=== PATIENT | male | born 1930 | race Caucasian/White ===

== ENCOUNTER 2016-09-20 08:37 | Emergency (ER) | payer OTHER, MEDICARE ==
[~2016-09-20] VITALS: Ht 172.7 cm; Wt 73.0 kg
[~2016-09-20 08:37] MED LIST: ASPEC81 PO; CYAN10005 PO; DICY10CA12 PO; IBUP-103 PO; SIMV10TA2 PO; ZNTT/150 PO
[2016-09-20 08:41] VITALS: TEMP 36.7; Ht 172.7 cm; Wt 73.0 kg
[2016-09-20] MEDS ORDERED: SODIUM CHLORIDE 0.9% 1000ML 250 ML IV STA (08:53)
[2016-09-20] MEDS ORDERED: SODIUM CHLORIDE 0.9% 1000ML 1,000 ML IV STA (08:53)
--- NOTE | 2016-09-20 09:18 | EMERGENCY ROOM VISIT NOTE ---
History Report prepared by Grant: Vickey Jarvis Under the Supervision of: Dr. Colin Montilla M.D. First contact with patient: 08:46 Chief Complaint: DIZZY Stated Complaint: DIZZINESS History of Present Illness The patient is a 86 year old male who presents to the Emergency Room with complaints of a constant headache beginning 7 days ago. He localizes the pain to the front of his head, and occasionally in the back of his head. He also complains of dizziness and nausea. The patient's dizziness is worsened with movement. He is on Plavix after a TIA. He notes that he had very similar symptoms with his previous TIA. The patient denies any falls or trauma. He denies any fevers, chills, chest pain, SOB, urinary symptoms, black or bloody stool, numbness, and weakness. He notes that he has a pacemaker in place. The patient states that he has not been drinking a lot of water lately. Source of History: patient Onset: 7 days ago Position: head Timing: constant Associated Symptoms: + nausea, No SOB, No chest pain, No chills, No fevers, No hematochezia, No melena, No numbness, No urinary symptoms, No weakness Note: The patient also complains of dizziness. Review of Systems See HPI for pertinent positives & negatives. A total of 10 systems reviewed and were otherwise negative. 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 Nurse's notes were reviewed and I agree with. Family History FHx: cancer FHx: heart disease Social History Smoking Status: Never Smoker Alcohol Use: none Housing Status: lives alone Occupation Status: retired Current/Historical Medications Scheduled Aspirin (Aspirin Ec), 81 MG PO DAILY Clopidogrel (Plavix), 75 MG PO QPM Furosemide (Lasix), 20 MG PO once or twice week Hydralazine Hcl (Apresoline), 10 MG PO BID Isosorbide Mononitrate Ext Rel (Imdur Ext Rel), 60 MG PO QPM Metoprolol Tartrate (Lopressor) (Lopressor), 50 MG PO BID Nutritional Supplements (Boost), 1 CAN PO DAILY Simvastatin (Zocor), 20 MG PO QPM Miscellaneous Medications Acetaminophen (Tylenol), 325 MG PO Allergies Coded Allergies: ROBERTA Inhibitors (Verified Adverse Reaction, Severe, HYPERKALEMIA, 05/25/15) Physical Exam Vital Signs Date Time Temp Pulse Resp B/P Pulse Ox O2 Delivery O2 Flow Rate FiO2 09/20/16 12:50 69 18 142/77 97 09/20/16 10:17 60 16 116/82 98 Room Air 09/20/16 09:17 62 20 127/71 97 Room Air 09/20/16 08:41 36.7 70 16 128/66 98 Room Air Physical Exam General: Well developed, well nourished, non-ill appearing older male in no acute distress, breathing comfortably on room air. Normal speech HEENT: Normal cephalic atraumatic. Pupils are equal round and reactive to light. Extraocular movements are intact. No nystagmus. Oropharynx is pink with moist mucous membranes. No swelling of the mouth lips or tongue. Neck: Supple with a midline trachea. No meningeal signs or stiffness, no JVD or bruits. No Stridor. Chest: Clear to auscultation bilaterally. No wheezes or rhonchi. No increased work of breathing. Heart: Paced rhythm seen on monitor. Abdomen: Soft nontender, nondistended without rebound guarding or rigidity. Extremities: No cyanosis clubbing or edema. No calf tenderness or assymetry Spine/Back. Non tender to palpation. No CVA tenderness Skin: Good turgor without rashes. Neurologic exam: Cranial nerves two through 12 are intact. Motor and sensation are intact and symmetrical throughout. No tremor. No pronator drift. Finger to nose intact. Medical Decision & Procedures ER Provider Diagnostic Interpretation: X-ray results as stated below per interpretation by me and the radiologist. Other radiology results as stated below per my review and radiologist interpretation: HEAD CT NONCONTRAST Findings: The paranasal sinuses and mastoid air cells are clear. The calvarium and skull base are intact. There is no mass, hematoma, midline shift, acute infarct. White matter hypodensity is nonspecific but suggestive of moderate microvascular ischemic change. The ventricles and sulci demonstrate mild age-related involutional changes. Impression: No significant change compared to the prior study. No acute intracranial abnormality. Electronically signed by: Dashawn Manzo M.D. CHEST ONE VIEW PORTABLE FINDINGS: Prior median sternotomy. Bipolar cardiac pacer in good position. Apical fibrotic change bilaterally considered stable. Slight chronic blunting left lateral calcific angle. Lungs otherwise are clear. IMPRESSION: Chronic and postoperative change. No acute process. Electronically signed by: Mir Miller M.D. Laboratory Results 09/20/16 09:05 Red Blood Count 4.59, Mean Corpuscular Volume 92.2, Mean Corpuscular Hemoglobin 29.6, Mean Corpuscular Hemoglobin Concent 32.2, Mean Platelet Volume 9.2, Neutrophils (%) (Auto) 59.9, Lymphocytes (%) (Auto) 20.9, Monocytes (%) (Auto) 10.0, Eosinophils (%) (Auto) 8.3, Basophils (%) (Auto) 0.6, Neutrophils # (Auto ) 4.17, Lymphocytes # (Auto) 1.46, Monocytes # (Auto) 0.70, Eosinophils # (Auto ) 0.58, Basophils # (Auto) 0.04 09/20/16 09:05 Test 09/20/16 09:05 09/20/16 09:11 White Blood Count 6.97 K/uL (4.8-10.8) Red Blood Count 4.59 M/uL (4.7-6.1) Hemoglobin 13.6 g/dL (14.0-18.0) Hematocrit 42.3 % (42-52) Mean Corpuscular Volume 92.2 fL (80-100) Mean Corpuscular Hemoglobin 29.6 pg (25-34) Mean Corpuscular Hemoglobin Concent 32.2 g/dl (32-36) Platelet Count 273 K/uL (130-400) Mean Platelet Volume 9.2 fL (7.4-10.4) Neutrophils (%) (Auto) 59.9 % Lymphocytes (%) (Auto) 20.9 % Monocytes (%) (Auto) 10.0 % Eosinophils (%) (Auto) 8.3 % Basophils (%) (Auto) 0.6 % Neutrophils # (Auto) 4.17 K/uL (1.4-6.5) Lymphocytes # (Auto) 1.46 K/uL (1.2-3.4) Monocytes # (Auto) 0.70 K/uL (0.11-0.59) Eosinophils # (Auto) 0.58 K/uL (0-0.5) Basophils # (Auto) 0.04 K/uL (0-0.2) RDW Standard Deviation 48.8 fL (36.4-46.3) RDW Coefficient of Variation 14.5 % (11.5-14.5) Immature Granulocyte % (Auto) 0.3 % Immature Granulocyte # (Auto) 0.02 K/uL (0.00-0.02) Prothrombin Time 11.0 SECONDS (9.0-12.0) Prothromb Time International Ratio 1.0 (0.9-1.1) Activated Partial Thromboplast Time 24.5 SECONDS (21.0-31.0) Partial Thromboplastin Ratio 0.9 Anion Gap 5.0 mmol/L (3-11) Est Creatinine Clear Calc Drug Dose 38.0 ml/min Estimated GFR () 56.5 Estimated GFR (Non- 48.7 BUN/Creatinine Ratio 16.6 (10-20) Calcium Level 9.3 mg/dl (8.5-10.1) Total Bilirubin 0.7 mg/dl (0.2-1) Direct Bilirubin 0.2 mg/dl (0-0.2) Aspartate Amino Transf (AST/SGOT) 20 U/L (15-37) Alanine Aminotransferase (ALT/SGPT) 21 U/L (12-78) Alkaline Phosphatase 79 U/L (45-117) Total Protein 7.2 gm/dl (6.4-8.2) Albumin 3.8 gm/dl (3.4-5.0) Lipase 284 U/L (73-393) Bedside Troponin I 0.000 ng/ml (0-0.045) FR-Zia-Q-Type Natriuretic Peptide 284 pg/ml (0-1800) Laboratory studies as stated above per my review. Medications Administered Medications (Trade) Dose Ordered Sig/Prachi Route Start Time Stop Time Status Last Admin Dose Admin Sodium Chloride 250 ml @ 999 mls/hr Q16M STAT IV 09/20/16 08:53 09/20/16 09:08 DC 09/20/16 09:25 999 MLS/HR Sodium Chloride (Nss 1000ml) 1,000 ml @ 100 mls/hr Q10H STAT IV 09/20/16 08:53 09/20/16 13:40 DC 09/20/16 08:53 100 MLS/HR Ketorolac Tromethamine (Toradol Inj) 30 mg NOW STAT IV 09/20/16 11:51 09/20/16 11:52 DC 09/20/16 11:58 30 MG ECG Indication: other (dizziness) Rate (beats per minute): 72 Rhythm: other (atrial paced rhythm) Findings: no acute ischemic change, no ectopy Comparison ECG Date: May 14, 2015 Change: no significant change ED Course 0847: Past medical records reviewed. The patient was evaluated in room A11B, and a complete history and physical examination were performed. 0853: Ordered Sodium Chloride 1000 ml @ 100 mls/hr IV, Sodium Chloride 250 ml @ 999 mls/hr IV. 0938: I check in on the patient. She has just returned from CT and looks well. 1151: I reassessed the patient. He would like something more for pain. Ordered Toradol Inj 30 mg IV. 1225: Upon reevaluation, the patient is resting comfortably. I discussed the results and treatment plan with him. He verbalized agreement of the treatment plan. The patient was discharged home. Medical Decision Differentials include, but are not limited to; vertigo, CVA, arrhythmia, anemia , and electrolyte or metabolic abnormality. This patient comes in as described above. He was placed in room A 11. he's had some dizziness has been going on for over a week. It is worse with movement. He has some frontal headache as well. He looks well on exam . he has a normal neurologic exam. He has a pacemaker with a paced rhythm seen on the monitor. IV access was established and blood work was obtained. I also did EKG, chest x- ray, and CAT scan of his head. He was reassessed frequently. He was gently hydrated with IV normal saline bolus. He remained stable. A mild headache and after some of her pain he was given Toradol. He felt better and wants to go home. He was able ambulate without difficulty. CAT scan of his head was unremarkable. He has nothing to suggest acute cardiac event as pacemaker seems to be working. He has no acute electrolyte or metabolic abnormality. He will rest and drink plenty of fluid, use [id number] Tylenol and do not exceed the [id number] dosing regimen for pain and return if: Worsening of symptoms, any new problems or concerns. He was happy with plan and discharged home. Impression Primary Impression: Dizziness Scribe Attestation The scribe's documentation has been prepared under my direction and personally reviewed by me in its entirety. I confirm that the note above accurately reflects all work, treatment, procedures, and medical decision making performed by me. Departure Information Dispostion Home / Self-Care Referrals Aurelio Carter M.D.(NADEEN) (PCP) Forms HOME CARE DOCUMENTATION FORM, IMPORTANT VISIT INFORMATION Patient Instructions My [facility] Additional Instructions Rest. Drink plenty of fluids. Be careful getting up and down. Use ibuprofen 400 mg every 8 hours if needed Return if: Worsening of symptoms, shortness of breath, fever or chills, numbness or weakness, any new problems or concerns. Follow-up with your doctor tomorrow for recheck
[2016-09-20] MEDS ORDERED: ACET-1311 PO (09:24)
[2016-09-20] MEDS ORDERED: FURO-85 PO (09:24)
[2016-09-20] MEDS ORDERED: NUTR-7 PO (09:24)
[2016-09-20 09:38] LABS: BASO % 0.6 %; BASO ABS # 0.04 K/uL (0-0.2); COMPLETE YES; EOS % 8.3 %; HEMATOCRIT 42.3 % (42-52); IG% 0.3 %; LYMPH % 20.9 %; LYMPH ABS # 1.46 K/uL (1.2-3.4); MEAN CELL VOLUME 92.2 fL (80-100); MEAN CORPUSCULAR HEMOGLOBIN 29.6 pg (25-34); MEAN CORPUSCULAR HGB CONC 32.2 g/dl (32-36); MEAN PLATELET VOLUME 9.2 fL (7.4-10.4); NEUT % 59.9 %; PLATELET COUNT 273 K/uL (130-400); RED BLOOD COUNT 4.59 M/uL (4.7-6.1); WHITE BLOOD COUNT 6.97 K/uL (4.8-10.8)
[2016-09-20 09:46] LABS: PARTIAL THROMBOPLASTIN RATIO 0.9
--- NOTE | 2016-09-20 09:52 | DIAGNOSTIC IMAGING REPORT ---
HEAD CT NONCONTRAST CT DOSE: 614.27 mGy.cm HISTORY: dizzy TECHNIQUE: Multiaxial CT images of the head were performed without the use of intravenous contrast. Automated exposure control was utilized for this study. Comparison: Head CT 07/12/2013. Findings: The paranasal sinuses and mastoid air cells are clear. The calvarium and skull base are intact. There is no mass, hematoma, midline shift, acute infarct. White matter hypodensity is nonspecific but suggestive of moderate microvascular ischemic change. The ventricles and sulci demonstrate mild age-related involutional changes. Impression: No significant change compared to the prior study. No acute intracranial abnormality. Electronically signed by: Dashawn Manzo M.D. 09/20/2016 9:50 AM Dictated Date/Time: 09/20/2016 9:46 AM
[2016-09-20 10:06] LABS: BUN/CREATININE RATIO 16.6 (10-20); CALCIUM 9.3 mg/dl (8.5-10.1); CREATININE 1.3 mg/dl (0.60-1.40)
--- NOTE | 2016-09-20 10:15 | DIAGNOSTIC IMAGING REPORT ---
CHEST ONE VIEW PORTABLE CLINICAL HISTORY: CHEST PAIN dyspnea COMPARISON STUDY: 05/14/2015 FINDINGS: Prior median sternotomy. Bipolar cardiac pacer in good position. Apical fibrotic change bilaterally considered stable. Slight chronic blunting left lateral calcific angle. Lungs otherwise are clear. IMPRESSION: Chronic and postoperative change. No acute process. Electronically signed by: Mir Miller M.D. 09/20/2016 10:14 AM Dictated Date/Time: 09/20/2016 10:13 AM
[2016-09-20] MEDS ORDERED: KETOROLAC TROMETHAMINE 30 MG/ML VIAL IV STA (11:51)
[2016-09-20 12:50] VITALS: BP 142/77; PULSE 69; O2SAT 97
[2016-11-21] MEDS ORDERED: ANT25 PO (12:34)
[2016-11-21] MEDS ORDERED: HYDR-5688 PO (12:47)
[2017-03-15] MEDS ORDERED: ASPI81TA28 PO (09:24)
[2017-03-15] MEDS ORDERED: SIMV20TA2 PO (09:24)
[2017-03-15] MEDS ORDERED: HYDR-4715 PO (11:32)
[2017-03-15] MEDS ORDERED: CLOP1TAB15 PO (12:50)
== END 2016-09-20 12:54 | disposition home or self-care (01) ==
LOC: C.EDB 08:39 → C.EDA 12:54
DX: R42 Dizziness and giddiness (principal); R51 Headache; R11.0 Nausea; I25.10 Atherosclerotic heart disease of native coronary artery without angina pectoris; E11.9 Type 2 diabetes mellitus without complications; I10 Essential (primary) hypertension; E78.5 Hyperlipidemia, unspecified; K21.9 Gastro-esophageal reflux disease without esophagitis; Z79.02 Long term (current) use of antithrombotics/antiplatelets; Z79.82 Long term (current) use of aspirin; Z79.899 Other long term (current) drug therapy; I25.2 Old myocardial infarction; Z86.73 Personal history of transient ischemic attack (TIA), and cerebral infarction without residual deficits; Z86.711 Personal history of pulmonary embolism; Z86.718 Personal history of other venous thrombosis and embolism; Z86.79 Personal history of other diseases of the circulatory system; Z95.0 Presence of cardiac pacemaker; Z82.49 Family history of ischemic heart disease and other diseases of the circulatory system

== ENCOUNTER 2016-11-18 19:19 | Inpatient (IN) | payer OTHER, MEDICARE ==
[~2016-11-18] VITALS: Ht 175.3 cm; Wt 76.2 kg
[~2016-11-18 19:19] MED LIST changes: +ACET-1311 PO; -ASPEC81 PO; +ASPI81TA28 PO; +CLOP1TAB15 PO; -CYAN10005 PO; -DICY10CA12 PO; +FURO-85 PO; +HYDR-4715 PO; -IBUP-103 PO; +ISOS60TA25 PO; +METO50TA16 PO; +NUTR-7 PO; -SIMV10TA2 PO; +SIMV20TA2 PO; -ZNTT/150 PO
[2016-11-18] MEDS ORDERED: SODIUM CHLORIDE 0.9% 250ML 250 ML IV STA (20:27)
[2016-11-18] MEDS ORDERED: SODIUM CHLORIDE 0.9% 1000ML 1,000 ML IV SCH (20:27)
[2016-11-18] MEDS ORDERED: MECLIZINE HCL 25 MG TAB PO STA (20:27)
[2016-11-18] MEDS ORDERED: DICY10CA12 PO (20:56)
[2016-11-18] MEDS ORDERED: ZNTT/150 PO (20:56)
[2016-11-18] MEDS ORDERED: B-CO1CAP3 PO (20:56)
--- NOTE | 2016-11-18 21:18 | DIAGNOSTIC IMAGING REPORT ---
SINGLE VIEW CHEST CLINICAL HISTORY: Strokelike symptoms. Vomiting. FINDINGS: 2 AP, portable, upright chest radiographs are compared to study dated 09/20/2016 and correlated with chest CT dated 05/14/2015. The examination is degraded by portable technique and patient rotation. A 2-lead cardiac pacemaker is unchanged in position. The patient is status post midline sternotomy. The heart is enlarged and there is atherosclerotic calcification of the thoracic aorta. The pulmonary vascular is noncongested. Numerous pulmonary nodules and biapical scarring are similar to previous. Chronic interstitial thickening is again noted. No airspace consolidation, large pleural effusion, or pneumothorax is seen. Scarring is again noted at the left lung base. The skeletal structures are osteopenic. The bony thorax is grossly intact. IMPRESSION: 1. Cardiomegaly and cardiac pacemaker. There is no radiographic evidence of congestive failure. 2. Chronic parenchymal changes as above. No superimposed airspace consolidation or pleural effusion is identified. Electronically signed by: Atilio Sánchez M.D. 11/18/2016 9:17 PM Dictated Date/Time: 11/18/2016 9:15 PM
--- NOTE | 2016-11-18 21:46 | DIAGNOSTIC IMAGING REPORT ---
CT SCAN OF THE BRAIN WITHOUT IV CONTRAST CLINICAL HISTORY: Headache. Stroke-like symptoms. COMPARISON STUDY: CT of the brain dated 09/20/2016. TECHNIQUE: Unenhanced axial CT scan of the brain is performed from the vertex to the skull base. CT DOSE: 614.27 mGy.cm FINDINGS: Brain parenchyma: There are age-related involutional changes noting advanced subcortical and periventricular microangiopathic change. There is no hemorrhage, mass effect, or evidence of acute territorial ischemia by CT criteria. 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 Mineralization is noted in the basal ganglia. Jerez-white matter is preserved. No extra-axial fluid collection is seen. Ventricles, sulci, cisterns: Prominent secondary to involutional change. Intracranial vasculature: There is atherosclerotic calcification of the cavernous carotid and vertebral arteries. Calvarium: Unremarkable. Sinuses and mastoids: Trace mucosal thickening is seen in the left maxillary antrum. The remaining paranasal sinuses are clear. The mastoid air cells are well pneumatized. Orbits: The bony orbits are grossly intact. There are bilateral ocular lens implants. IMPRESSION: Senescent changes as above with no hemorrhage, mass effect, or evidence of acute territorial ischemia by CT criteria. Electronically signed by: Atilio Sánchez M.D. 11/18/2016 9:44 PM Dictated Date/Time: 11/18/2016 9:41 PM
[2016-11-18 21:57] LABS: BASO % 0.6 %; BASO ABS # 0.04 K/uL (0-0.2); COMPLETE YES; EOS % 2.8 %; HEMATOCRIT 40.9 % (42-52); IG% 0.1 %; LYMPH % 28.7 %; LYMPH ABS # 2.06 K/uL (1.2-3.4); MEAN CELL VOLUME 90.7 fL (80-100); MEAN CORPUSCULAR HEMOGLOBIN 29.7 pg (25-34); MEAN CORPUSCULAR HGB CONC 32.8 g/dl (32-36); MONO % 7.1 %; NEUT % 60.7 %; PLATELET COUNT 265 K/uL (130-400); RED BLOOD COUNT 4.51 M/uL (4.7-6.1); WHITE BLOOD COUNT 7.19 K/uL (4.8-10.8)
[2016-11-18] MEDS ORDERED: PROMETHAZINE HCL INJ 12.5 MG in SODIUM CHLORIDE 0.9% 50ML 50 ML IV STA (22:07)
[2016-11-18 22:20] LABS: BLOOD UREA NITROGEN 22 mg/dl (7-18); BUN/CREATININE RATIO 15.9 (10-20); CALCIUM 9.3 mg/dl (8.5-10.1); CARBON DIOXIDE 28 mmol/L (21-32); CHLORIDE 109 mmol/L (98-107); GLUCOSE 120 mg/dl (70-99); SODIUM 144 mmol/L (136-145)
[2016-11-18] MEDS ORDERED: MoRPHine SULFATE 4 MG/ML 1 ML CARP\\VIAL IV STA (23:04)
[2016-11-19] VITALS (10 sets, daily range): BP systolic 111–155; BP diastolic 49–88; PULSE 62–102; TEMP 36.5–37; O2SAT 96–99; Ht 175.3 cm; Wt 76.2 kg
[2016-11-19] MEDS ORDERED: POLYETHYLENE (MIRALAX) 17 GM PACK PO PRN (00:30)
[2016-11-19] MEDS ORDERED: MAGNESIUM HYDROXIDE SUSP 30 ML UDC PO PRN (00:30)
[2016-11-19] MEDS ORDERED: ACETAMINOPHEN 325 MG TAB PO PRN (00:30)
[2016-11-19] MEDS ORDERED: ONDANSETRON INJ 2 MG/ML 2 ML VIAL IV PRN (00:30)
[2016-11-19] MEDS ORDERED: ALUMINUM/MAGNESIUM/SIMETH (MAALOX MAX) 30 ML UDC PO PRN (00:30)
[2016-11-19] MEDS ORDERED: MECLIZINE HCL 25 MG TAB PO PRN (00:30)
--- NOTE | 2016-11-19 00:47 | EMERGENCY ROOM VISIT NOTE ---
History Report prepared by Grant: Jessica Dhillon Under the Supervision of: Dr. Juliocesar Humphrey M.D. First contact with patient: 20:07 Chief Complaint: ILLNESS Stated Complaint: SPINNING HEADACHE IN BACK OF NECK,VOMITING History of Present Illness The patient is an 86 year old male who presents to the Emergency Room with complaints of a persistent headache that began around 0500 this morning when he woke. He currently rates his discomfort as a 6/10 in severity. The patient states that when he woke this morning he noticed a headache that he describes as a pounding headache. He notes worsened symptoms with movement. The patient additionally associates dizziness with his symptoms, describing the dizziness as a room spinning sensation. He additionally notes that he vomited twice today. The patient states that he was here one month ago with similar symptoms and was told his symptoms were related to dehydration. He additionally notes that he was diagnosed with a TIA approximately one year ago with similar symptoms today. The patient's daughter notes that the patient is shaky today. The patient denies any chest pain, shortness of breath, fever, difficulty swallowing, visual disturbances, new hearing loss, or new numbness or weakness to one side of the body. The patient notes bilateral numbness to his lower legs due to circulatory problems. The patient states that he took two aspirin and Pepto Bismol for his symptoms today. He additionally notes that he is on Plavix. Source of History: patient, family (daughter) Onset: 0500 this morning Position: head Symptom Intensity: 6/10 Quality: other (pounding) Timing: other (persistent) Associated Symptoms: + vomiting, No fevers, No chest pain, No SOB, No weakness, No numbness Note: Associated Symptoms: dizziness, room spinning sensation Review of Systems See HPI for pertinent positives & negatives. A total of 10 systems reviewed and were otherwise negative. 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 Family History FHx: cancer FHx: heart disease Social History Smoking Status: Never Smoker Alcohol Use: none Housing Status: lives alone Occupation Status: retired Current/Historical Medications Scheduled Aspirin (Aspirin Ec), 81 MG PO DAILY B-Complex Vitamins (B Complex), 1 CAP PO QAM Clopidogrel (Plavix), 75 MG PO QPM Dicyclomine Hcl (Dicyclomine Hcl), 1 CAP PO DAILY Furosemide (Lasix), 20 MG PO once or twice week Hydralazine Hcl (Apresoline), 10 MG PO BID Isosorbide Mononitrate Ext Rel (Imdur Ext Rel), 60 MG PO QPM Metoprolol Tartrate (Lopressor) (Lopressor), 50 MG PO BID Nutritional Supplements (Boost), 1 CAN PO DAILY Ranitidine (Zantac), 150 MG PO BID Simvastatin (Zocor), 20 MG PO QPM Miscellaneous Medications Acetaminophen (Tylenol), 325 MG PO Allergies Coded Allergies: ROBERTA Inhibitors (Verified Adverse Reaction, Severe, HYPERKALEMIA, 11/18/16) Physical Exam Vital Signs Date Time Temp Pulse Resp B/P (MAP) Pulse Ox O2 Delivery O2 Flow Rate FiO2 11/19/16 00:30 61 13 129/57 94 Room Air 11/19/16 00:00 60 16 138/80 96 Room Air 11/18/16 23:30 61 17 123/64 96 Room Air 11/18/16 23:17 127/63 11/18/16 23:00 62 13 127/63 95 Room Air 11/18/16 22:19 64 15 98 11/18/16 22:04 64 16 98 11/18/16 22:01 136/83 11/18/16 21:49 66 18 97 11/18/16 21:19 64 15 96 11/18/16 21:14 80 11/18/16 21:10 98 Room Air 11/18/16 21:09 146/75 11/18/16 19:26 36.6 99 18 148/61 97 Room Air Physical Exam Constitutional: Vital signs reviewed. Eyes: Pupils are equal round reactive to light. Conjunctiva are noninjected. ENT: Pharynx is clear without erythema or exudate. Mucous membranes are moist. Neck supple without meningeal signs. Respiratory: Clear to auscultation bilaterally. Breath sounds are equal bilaterally. Cardiovascular: Regular rate and rhythm. No rubs or gallops. GI: Soft, nondistended and nontender. Bowel sounds are present. Musculoskeletal: No peripheral edema. No lower extremity tenderness. Integumentary: No cyanosis. Neurological: The patient is awake and alert. Cranial nerves II-XII are intact. Motor is 5 out of 5 all extremities. Sensation is intact to light touch all extremities except chronically in the lower extremities below the knees bilaterally. Normal speech. No pronator drift. No limb ataxia. Left lateral nystagmus, no rotatory nystagmus, no dysdiadochokinesis, positive head impulse testing, negative test of skew. Psychiatric: Anxious. Medical Decision & Procedures ER Provider Diagnostic Interpretation: Radiology results as stated below per my review and the radiologist's interpretation: SINGLE VIEW CHEST CLINICAL HISTORY: Strokelike symptoms. Vomiting. FINDINGS: 2 AP, portable, upright chest radiographs are compared to study dated 09/20/2016 and correlated with chest CT dated 05/14/2015. The examination is degraded by portable technique and patient rotation. A 2-lead cardiac pacemaker is unchanged in position. The patient is status post midline sternotomy. The heart is enlarged and there is atherosclerotic calcification of the thoracic aorta. The pulmonary vascular is noncongested. Numerous pulmonary nodules and biapical scarring are similar to previous. Chronic interstitial thickening is again noted. No airspace consolidation, large pleural effusion, or pneumothorax is seen. Scarring is again noted at the left lung base. The skeletal structures are osteopenic. The bony thorax is grossly intact. IMPRESSION: 1. Cardiomegaly and cardiac pacemaker. There is no radiographic evidence of congestive failure. 2. Chronic parenchymal changes as above. No superimposed airspace consolidation or pleural effusion is identified. Electronically signed by: Atilio Sánchez M.D. 11/18/2016 9:17 PM Dictated Date/Time: 11/18/2016 9:[address] SCAN OF THE BRAIN WITHOUT IV CONTRAST CLINICAL HISTORY: Headache. Stroke-like symptoms. COMPARISON STUDY: CT of the brain dated 09/20/2016. TECHNIQUE: Unenhanced axial CT scan of the brain is performed from the vertex to the skull base. CT DOSE: 614.27 mGy.cm FINDINGS: Brain parenchyma: There are age-related involutional changes noting advanced subcortical and periventricular microangiopathic change. There is no hemorrhage, mass effect, or evidence of acute territorial ischemia by CT criteria. 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 Mineralization is noted in the basal ganglia. Jerez-white matter is preserved. No extra-axial fluid collection is seen. Ventricles, sulci, cisterns: Prominent secondary to involutional change. Intracranial vasculature: There is atherosclerotic calcification of the cavernous carotid and vertebral arteries. Calvarium: Unremarkable. Sinuses and mastoids: Trace mucosal thickening is seen in the left maxillary antrum. The remaining paranasal sinuses are clear. The mastoid air cells are well pneumatized. Orbits: The bony orbits are grossly intact. There are bilateral ocular lens implants. IMPRESSION: Senescent changes as above with no hemorrhage, mass effect, or evidence of acute territorial ischemia by CT criteria. Electronically signed by: Atilio Sánchez M.D. 11/18/2016 9:44 PM Dictated Date/Time: 11/18/2016 9:41 PM Laboratory Results 11/18/16 21:45 Red Blood Count 4.51, Mean Corpuscular Volume 90.7, Mean Corpuscular Hemoglobin 29.7, Mean Corpuscular Hemoglobin Concent 32.8, Mean Platelet Volume 9.0, Neutrophils (%) (Auto) 60.7, Lymphocytes (%) (Auto) 28.7, Monocytes (%) (Auto) 7.1, Eosinophils (%) (Auto) 2.8, Basophils (%) (Auto) 0.6, Neutrophils # (Auto) 4.37, Lymphocytes # (Auto) 2.06, Monocytes # (Auto) 0.51, Eosinophils # (Auto) 0.20, Basophils # (Auto) 0.04 11/18/16 21:45 Test 11/18/16 21:45 White Blood Count 7.19 K/uL (4.8-10.8) Red Blood Count 4.51 M/uL (4.7-6.1) Hemoglobin 13.4 g/dL (14.0-18.0) Hematocrit 40.9 % (42-52) Mean Corpuscular Volume 90.7 fL (80-100) Mean Corpuscular Hemoglobin 29.7 pg (25-34) Mean Corpuscular Hemoglobin Concent 32.8 g/dl (32-36) Platelet Count 265 K/uL (130-400) Mean Platelet Volume 9.0 fL (7.4-10.4) Neutrophils (%) (Auto) 60.7 % Lymphocytes (%) (Auto) 28.7 % Monocytes (%) (Auto) 7.1 % Eosinophils (%) (Auto) 2.8 % Basophils (%) (Auto) 0.6 % Neutrophils # (Auto) 4.37 K/uL (1.4-6.5) Lymphocytes # (Auto) 2.06 K/uL (1.2-3.4) Monocytes # (Auto) 0.51 K/uL (0.11-0.59) Eosinophils # (Auto) 0.20 K/uL (0-0.5) Basophils # (Auto) 0.04 K/uL (0-0.2) RDW Standard Deviation 47.9 fL (36.4-46.3) RDW Coefficient of Variation 14.3 % (11.5-14.5) Immature Granulocyte % (Auto) 0.1 % Immature Granulocyte # (Auto) 0.01 K/uL (0.00-0.02) Prothrombin Time 11.0 SECONDS (9.0-12.0) Prothromb Time International Ratio 1.0 (0.9-1.1) Activated Partial Thromboplast Time 25.3 SECONDS (21.0-31.0) Partial Thromboplastin Ratio 1.0 Anion Gap 7.0 mmol/L (3-11) Est Creatinine Clear Calc Drug Dose 35.3 ml/min Estimated GFR () 51.6 Estimated GFR (Non- 44.5 BUN/Creatinine Ratio 15.9 (10-20) Calcium Level 9.3 mg/dl (8.5-10.1) Troponin I < 0.015 ng/ml (0-0.045) Laboratory results as reviewed by me. Medications Administered Medications (Trade) Dose Ordered Sig/Prachi Route Start Time Stop Time Status Last Admin Dose Admin Sodium Chloride 1,000 ml @ 50 mls/hr Q20H IV 11/18/16 20:27 12/18/16 20:26 11/18/16 22:02 50 MLS/HR Sodium Chloride 250 ml @ 999 mls/hr Q16M STAT IV 11/18/16 20:27 7/7/17 20:42 DC 11/18/16 21:47 999 MLS/HR Meclizine HCl (Antivert Tab) 25 mg NOW STAT PO 11/18/16 20:27 11/18/16 20:29 DC 11/18/16 21:53 25 MG Promethazine HCl 12.5 mg/Sodium Chloride 50.5 ml @ 204 mls/hr NOW STAT IV 11/18/16 22:07 11/18/16 22:21 DC 11/18/16 22:22 204 MLS/HR Morphine Sulfate (MoRPHine SULFATE INJ) 4 mg NOW STAT IV 11/18/16 23:04 11/18/16 23:05 DC 11/18/16 23:19 4 MG ECG Indication: other (dizziness) Rate (beats per minute): 67 Rhythm: other (atrial paced) Findings: Q waves (Inferior), no ectopy ED Course 2009: The patient was evaluated in room C9. A complete history and physical exam was performed. 2026: Ordered Antivert Tab 25 mg PO, Sodium Chloride 250 ml @ 999 mls/hr IV, Sodium Chloride 1000 ml @ 50 mls/hr IV. 2143: I reevaluated the patient and he has some slight asymmetry to the left side. The right side rises higher than the left. 2206: Ordered Promethazine HCl 12.4 mg/Sodium Chloride 50.5 ml @ 204 mls/hr IV. 2: I reevaluated the patient and he is not feeling any better. Phenergan is currently infusing and he appears to have asymmetry to the face. The asymmetry appears to be effort related as he can sometimes smile fully on the left side. 2256: I reevaluated the patient and he is not feeling any better. I discussed all the exam findings with him and I discussed the treatment plan. He verbalized complete understanding and agreement. The patient is going to be evaluated for further treatment. 2304: Ordered Morphine Sulfate 4 mg IV. 2305: I discussed the patients case with Keira Gustafson. He is going to evaluate the patient for further treatment. Medical Decision This is an 86-year-old male who presents with dizziness and headache. Differential diagnosis includes intracranial hemorrhage, intracranial mass, cerebellar infarct, benign positional vertigo, vertebrobasilar insufficiency. I did perform a limited focused review of portions of the patient's old chart on the electronic medical record. The patient was here in September for dizziness and headache. He had a negative CT of the head. He felt better with normal saline and was discharged home. He was admitted in 2013 for vertigo and headache. Questionable posterior CVA. Medication Reconciliation: I attest that I have personally reviewed the patient' s current medication list. Blood Pressure Screening: Patient was found to have an elevated blood pressure and was referred to their primary doctor for recheck and further treatment. I did evaluate the patient as noted above. I did evaluate the patient as noted above. He has had previous episodes of acute vertigo. It is worse with movement of his head. He has no cerebellar signs on my examination. His exam is more consistent with a peripheral vertigo. IV access was established. The patient was placed on a continuous potline monitor. I did treat him with normal saline IV. He was also given Antivert. He had no relief and was given Phenergan IV. I did order and personally review the patient's 12-lead EKG and chest x-ray as described above. I did order and review the patient's blood work as noted in the electronic medical record. I did order a CT of the head. I did review the images myself as well as the radiology report as described above. There is no evidence of infarct. I did reassess the patient. He has persistent symptoms. I did treat the patient with morphine. I did recommend hospitalization for further evaluation of his symptoms. Unfortunately because of his pacemaker he cannot have an MRI. He may require a CT angiogram. I did discuss the case with the hospitalist and case operator. Consults Time Called: 2300 Consulting Physician: Keira Gustafson Returned Call: [phone] I discussed the patients case with Keira Gustafson. He is going to evaluate the patient for further treatment. Impression Primary Impression: Ataxia Additional Impressions: Vertigo Headache Scribe Attestation The scribe's documentation has been prepared under my direct and personally reviewed by me in its entirety. I confirm that the note above accurately reflects all work, treatment, procedures, and medical decision making performed by me. Departure Information Dispostion Being Evaluated By Hospitalist Referrals Aurelio Carter M.D. ([facility]) (PCP) Problem Qualifiers Additional Impressions: Headache Headache type: unspecified Headache chronicity pattern: acute headache
[2016-11-19] MEDS ORDERED: OPTIRAY 320 IV PRN ×2 (01:00→15:00)
--- NOTE | 2016-11-19 01:19 | History and Physical ---
History & Physical Date & Time of Service: Nov 19, 2016 at 00:53 Chief Complaint: Spinning Headache In Back Of Neck,Vomiting Primary Care Physician: Aurelio Carter M.D.([facility]) History of Present Illness Source: patient, family, clinic records, hospital records This is an 86 year old male with a PMH of CAD s/p CABG x3, sinus node dysfunction s/p permanent pacemaker, ischemic cardiomyopathy with EF ~ 40%, HTN presents with dizziness, nausea, headache from the neck radiating to the front of the head. Patient states that he has had issues with dizziness in the past. Also states in 2013, he had been told about a possible TIA. States that the dizziness began at about 4AM on November 18 -- and has persisted since then. Denies chest pain/palpitations/shortness of breath. Was in his usual state of health prior to this beginning. Denies fevers/chills. Past Medical/Surgical History Medical Problems: (1) ACUTE PERICARDITIS NOS Status: Chronic (2) ACUTE RENAL FAILURE, UNSPECIFIED Status: Chronic (3) AORTOCORONARY BYPASS Status: Chronic (4) ATRIAL FIBRILLATION Status: Chronic (5) CARDIAC PACEMAKER IN SITU Status: Chronic (6) CORON ATHEROSCLER NOS TYPE VESSEL, [place] OR GRAFT Status: Chronic (7) DIAB PRANAY WO COMPL, TYPE II OR UNSPEC TYPE, NOT UNCNTRLD Status: Chronic (8) DIVERTICULOSIS COLON (W/O MENT OF HEMORRHAGE) Status: Chronic (9) ESOPHAGEAL REFLUX Status: Chronic (10) HX-VENOUS THROMBOSIS&EMBOLISM Status: Chronic (11) HYPERLIPIDEMIA NEC/NOS Status: Chronic (12) HYPERTENSION NOS Status: Chronic (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 (14) 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 Family History FHx: cancer FHx: heart disease Social History Smoking Status: Never Smoker Housing status: lives alone Occupational Status: retired Immunizations History of Influenza Vaccine: Yes Influenza Vaccine Date: Feb 22, 2013 History of Tetanus Vaccine?: UTD Tetanus Immunization Date: Jul 23, 2005 History of Pneumococcal: Yes Pneumococcal Date: Jul 23, 2005 History of Hepatitis B Vaccine: No Multi-Drug Resistant Organisms History of MDRO: No Allergies Coded Allergies: ROBERTA Inhibitors (Verified Adverse Reaction, Severe, HYPERKALEMIA, 11/18/16) Home Medications Scheduled Aspirin (Aspirin Ec), 81 MG PO DAILY B-Complex Vitamins (B Complex), 1 CAP PO QAM Clopidogrel (Plavix), 75 MG PO QPM Dicyclomine Hcl (Dicyclomine Hcl), 1 CAP PO DAILY Furosemide (Lasix), 20 MG PO once or twice week Hydralazine Hcl (Apresoline), 10 MG PO BID Isosorbide Mononitrate Ext Rel (Imdur Ext Rel), 60 MG PO QPM Metoprolol Tartrate (Lopressor) (Lopressor), 50 MG PO BID Nutritional Supplements (Boost), 1 CAN PO DAILY Ranitidine (Zantac), 150 MG PO BID Simvastatin (Zocor), 20 MG PO QPM Miscellaneous Medications Acetaminophen (Tylenol), 325 MG PO Review of Systems Constitutional: No fever, No chills, No weakness Eyes: + problem reported (+headache), No worsening of vision Respiratory: No cough, No sputum, No wheezing, No shortness of breath, No dyspnea on exertion, No dyspnea at rest, No hemoptysis Cardiovascular: No chest pain, No edema, No palpitations Abdomen: + nausea, + vomiting, No pain, No diarrhea, No constipation, No GI bleeding Musculoskeletal: No joint pain, No muscle pain Genitourinary - Male: No hematuria, No dysuria, No urinary frequency, No urinary urgency Neurologic: + vertigo, + balance problems, No memory loss, No paralysis, No weakness, No numbness/tingling Psychiatric: No depression symptoms Endocrine: No fatigue Hematologic / Lymphatic: No abnormal bleeding/bruising Integumentary: No rash Allergic / Immunologic: No environmental allergies, No seasonal allergies Physical Exam Vital Signs Date Time Temp Pulse Resp B/P (MAP) Pulse Ox O2 Delivery O2 Flow Rate FiO2 11/19/16 00:30 61 13 129/57 94 Room Air 11/19/16 00:00 60 16 138/80 96 Room Air 11/18/16 23:30 61 17 123/64 96 Room Air 11/18/16 23:17 127/63 11/18/16 23:00 62 13 127/63 95 Room Air 11/18/16 22:19 64 15 98 11/18/16 22:04 64 16 98 11/18/16 22:01 136/83 11/18/16 21:49 66 18 97 11/18/16 21:19 64 15 96 11/18/16 21:14 80 11/18/16 21:10 98 Room Air 11/18/16 21:09 146/75 11/18/16 19:26 36.6 99 18 148/61 97 Room Air General Appearance: + moderate distress (secondary to pain/headache/dizziness) , + pertinent finding (elderly) Head: normocephalic, atraumatic Eyes: normal inspection ENT: hearing grossly normal Respiratory/Chest: chest non-tender, lungs clear, normal breath sounds, no respiratory distress, no accessory muscle use Cardiovascular: regular rate, rhythm, no edema Abdomen/GI: normal bowel sounds, non tender, soft Extremities/Musculoskelatal: normal capillary refill, no pedal edema Neurologic/Psych: medical customer service representative II-XII nml as tested, no motor/sensory deficits, alert, normal mood/affect, oriented x 3 Diagnostics Laboratory Results Results Past 24 Hours Test 11/18/16 21:45 Range/Units White Blood Count 7.19 4.8-10.8 K/uL Red Blood Count 4.51 4.7-6.1 M/uL Hemoglobin 13.4 14.0-18.0 g/dL Hematocrit 40.9 42-52 % Mean Corpuscular Volume 90.7 80-100 fL Mean Corpuscular Hemoglobin 29.7 25-34 pg Mean Corpuscular Hemoglobin Concent 32.8 32-36 g/dl Platelet Count 265 130-400 K/uL Mean Platelet Volume 9.0 7.4-10.4 fL Neutrophils (%) (Auto) 60.7 % Lymphocytes (%) (Auto) 28.7 % Monocytes (%) (Auto) 7.1 % Eosinophils (%) (Auto) 2.8 % Basophils (%) (Auto) 0.6 % Neutrophils # (Auto) 4.37 1.4-6.5 K/uL Lymphocytes # (Auto) 2.06 1.2-3.4 K/uL Monocytes # (Auto) 0.51 0.11-0.59 K/uL Eosinophils # (Auto) 0.20 0-0.5 K/uL Basophils # (Auto) 0.04 0-0.2 K/uL RDW Standard Deviation 47.9 36.4-46.3 fL RDW Coefficient of Variation 14.3 11.5-14.5 % Immature Granulocyte % (Auto) 0.1 % Immature Granulocyte # (Auto) 0.01 0.00-0.02 K/uL Prothrombin Time 11.0 9.0-12.0 SECONDS Prothromb Time International Ratio 1.0 0.9-1.1 Activated Partial Thromboplast Time 25.3 21.0-31.0 SECONDS Partial Thromboplastin Ratio 1.0 Sodium Level 144 136-145 mmol/L Potassium Level 4.0 3.5-5.1 mmol/L Chloride Level 109 98-107 mmol/L Carbon Dioxide Level 28 21-32 mmol/L Anion Gap 7.0 3-11 mmol/L Blood Urea Nitrogen 22 7-18 mg/dl Creatinine 1.40 0.60-1.40 mg/dl Est Creatinine Clear Calc Drug Dose 35.3 ml/min Estimated GFR () 51.6 Estimated GFR (Non- 44.5 BUN/Creatinine Ratio 15.9 10-20 Random Glucose 120 70-99 mg/dl Calcium Level 9.3 8.5-10.1 mg/dl Troponin I < 0.015 0-0.045 ng/ml Diagnostic Radiology CT SCAN OF THE BRAIN WITHOUT IV CONTRAST CLINICAL HISTORY: Headache. Stroke-like symptoms. COMPARISON STUDY: CT of the brain dated 09/20/2016. TECHNIQUE: Unenhanced axial CT scan of the brain is performed from the vertex to the skull base. CT DOSE: 614.27 mGy.cm FINDINGS: Brain parenchyma: There are age-related involutional changes noting advanced subcortical and periventricular microangiopathic change. There is no hemorrhage, mass effect, or evidence of acute territorial ischemia by CT criteria. 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 Mineralization is noted in the basal ganglia. Jerez-white matter is preserved. No extra-axial fluid collection is seen. Ventricles, sulci, cisterns: Prominent secondary to involutional change. Intracranial vasculature: There is atherosclerotic calcification of the cavernous carotid and vertebral arteries. Calvarium: Unremarkable. Sinuses and mastoids: Trace mucosal thickening is seen in the left maxillary antrum. The remaining paranasal sinuses are clear. The mastoid air cells are well pneumatized. Orbits: The bony orbits are grossly intact. There are bilateral ocular lens implants. IMPRESSION: Senescent changes as above with no hemorrhage, mass effect, or evidence of acute territorial ischemia by CT criteria. SINGLE VIEW CHEST CLINICAL HISTORY: Strokelike symptoms. Vomiting. FINDINGS: 2 AP, portable, upright chest radiographs are compared to study dated 09/20/2016 and correlated with chest CT dated 05/14/2015. The examination is degraded by portable technique and patient rotation. A 2-lead cardiac pacemaker is unchanged in position. The patient is status post midline sternotomy. The heart is enlarged and there is atherosclerotic calcification of the thoracic aorta. The pulmonary vascular is noncongested. Numerous pulmonary nodules and biapical scarring are similar to previous. Chronic interstitial thickening is again noted. No airspace consolidation, large pleural effusion, or pneumothorax is seen. Scarring is again noted at the left lung base. The skeletal structures are osteopenic. The bony thorax is grossly intact. IMPRESSION: 1. Cardiomegaly and cardiac pacemaker. There is no radiographic evidence of congestive failure. 2. Chronic parenchymal changes as above. No superimposed airspace consolidation or pleural effusion is identified. EKG Atrial-paced rhythm with prolonged AV conduction Inferior infarct (cited on or before 28-MAR-2010) Cannot rule out Anterior infarct , age undetermined Abnormal ECG When compared with ECG of 20-SEP-2016 09:04, No significant change was found No change from prior EKG Impression Assessment and Plan This is an 86 year old male with a PMH of CAD s/p CABG x3, sinus node dysfunction s/p permanent pacemaker, ischemic cardiomyopathy with EF ~ 40%, HTN presents with vertigo Vertigo dizziness, vertigo, nausea/vomiting/ambulatory issues Head CT negative given meclizine, Phenergan - did not improve symptoms worsening headache as well hx. of possible TIA in 2013 will check CTA of head/neck to r/o CVA/circulation issues morphine, toradol PRN meclizine 25mg TID PRN PT/OT evaluation CAD s/p CABG no chest pain, stable continue aspirin, b-сергей, statin, Imdur, Plavix Sinus Node Dysfunction s/p PPM HTN continue Hydralazine DVT ppx subq heparin FULL CODE VTE Prophylaxis VTE Risk Assessment Done? Y/N: Yes Risk Level: Moderate
[2016-11-19] MEDS ORDERED: SODIUM CHLORIDE 0.9% 1000ML 1,000 ML IV SCH ×2 (03:00→18:45)
[2016-11-19] MEDS: HEPARIN SOD 5000 UNIT/0.5 ML CARP SQ SCH ×3 (05:37→21:14)
[2016-11-19 06:10] LABS: MEAN CELL VOLUME 90.5 fL (80-100); MEAN CORPUSCULAR HEMOGLOBIN 30.3 pg (25-34); MEAN CORPUSCULAR HGB CONC 33.5 g/dl (32-36); MEAN PLATELET VOLUME 8.7 fL (7.4-10.4); PLATELET COUNT 241 K/uL (130-400); RED BLOOD COUNT 4.09 M/uL (4.7-6.1); WHITE BLOOD COUNT 6.48 K/uL (4.8-10.8)
[2016-11-19 06:42] LABS: BUN/CREATININE RATIO 15.5 (10-20); CALCIUM 8.6 mg/dl (8.5-10.1); CREATININE 1.2 mg/dl (0.60-1.40)
--- NOTE | 2016-11-19 07:23 | DIAGNOSTIC IMAGING REPORT ---
CT NECK ANGIO WITH CONTRAST CLINICAL HISTORY: Headache, dizziness, neck pain. COMPARISON STUDY: No previous studies for comparison. TECHNIQUE: CT angiography was performed from the aortic arch to the skull base. MIP imaging was performed. The patient was scanned in a dynamic helical fashion during intravenous administration of 120 cc of Optiray 320. CT DOSE: 1425.13 mGy.cm Technique: CT angiogram of the carotid and vertebral arteries was obtained using intravenous contrast and 3-D reconstruction. NASCET criteria was utilized. Findings: Visualized portions of the lung apices reveal multiple upper lung zone pulmonary nodules, likely infectious/inflammatory. There are atheromatous changes present at the right carotid bifurcation. There is a high-grade stenosis of the right external carotid artery. There is no evidence of 11 significant internal carotid artery stenosis. Moderate atheromatous changes are present at the bifurcation. There is no evidence of hemodynamic significant internal or external carotid artery stenosis. The right vertebral artery is dominant. The left vertebral artery occludes distally. More proximally, there are multifocal stenoses. IMPRESSION: 1. Dominant right vertebral 2. Multifocal left vertebral stenoses which occludes the C1 level 3. No evidence of internal carotid artery stenosis 4. 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 Extensive bilateral fibronodular apical pulmonary opacities. Electronically signed by: Uzair Castillo M.D. 11/19/2016 7:22 AM Dictated Date/Time: 11/19/2016 7:15 AM
--- NOTE | 2016-11-19 07:29 | DIAGNOSTIC IMAGING REPORT ---
CT ANGIOGRAPHY HEAD COMBO CT DOSE: CLINICAL HISTORY: Headache and dizziness TECHNIQUE: Unenhanced images were obtained the brain. The patient was then imaged in a dynamic helical fashion during intravenous administration of 120 cc of Optiray 320. MIP imaging was performed. COMPARISON STUDY: Noncontrast head CT dated 11/18/2016 FINDINGS: No intra or extra-axial mass lesions are visualized. There is extensive white matter hypodensities, likely a small vessel basis. There is no acute hemorrhage. There is no midline shift. There is no hydrocephalus. The distal left vertebral is occluded. The left vertebral fills in a retrograde fashion. There is no evidence of intracranial stenosis. The dural venous sinuses appear patent. 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 IMPRESSION: 1. 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 11/19/2016 7:27 AM Dictated Date/Time: 11/19/2016 7:23 AM
[2016-11-19] MEDS: ASPIRIN 81 MG ECTAB PO SCH (07:42)
[2016-11-19] MEDS: DICYCLOMINE HCL 10 MG CAP PO SCH (07:42)
[2016-11-19] MEDS: HydrALAZINE 10 MG TAB PO SCH ×2 (07:42→21:12)
[2016-11-19] MEDS: RANITIDINE HCL 150 MG TAB PO SCH ×2 (07:43→21:11)
[2016-11-19] MEDS: METOPROLOL TARTRATE 50 MG TAB PO SCH ×2 (07:43→21:11)
[2016-11-19] MEDS: MoRPHine SULFATE 2 MG/ML CARP IV PRN (07:47)
[2016-11-19 07:58] LABS: URINE APPEARANCE CLEAR (CLEAR); URINE BILIRUBIN NEG (NEG); URINE COLOR YELLOW; URINE NITRITE NEG (NEG); URINE SPECIFIC GRAVITY > 1.045 (1.000-1.030); UROBILINOGEN NEG (NEG); ZZUR CULT IF INDIC CLEAN CATCH NO
[2016-11-19] MEDS ORDERED: PNEUMOCOCCAL ADMINISTRATION CHARGE ONE (08:00)
[2016-11-19] MEDS ORDERED: PNEUMOCOCCAL POLYSACCHARIDES 25 MCG/0.5 ML VIAL/SYR IM. ONE (08:00)
[2016-11-19 08:13] LABS: MANUAL MICROSCOPIC REQUIRED? NO; REVIEW REQ? NO
--- NOTE | 2016-11-19 12:13 | Neurology Consultation ---
Neurology Consultation Date of Consultation: Nov 19, 2016. Attending Physician: Debbie Ayala D.O. Primary Care Physician: Aurelio Carter M.D.(NADEEN) Reason for Consultation: headache with vertigo History of Present Illness Source: patient, family, hospital records This is an 86 year old man a pateint of Dr Carter with the past history as listed below and medications as listed below who presented to the er on the with a history of occipital cervical midline headache and dizziness which by history is a mix of dysequilibrium and probable elements of vertigo with some hearing loss worse on the left but with no symptoms referable to other cranial nerves and with a long history of gait dysfunction and distal leg weakness and numbness that required a can for stability. 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 (6) CORON ATHEROSCLER NOS TYPE VESSEL, LEVELOCK OR GRAFT Status: Chronic (7) DIAB PRANAY WO COMPL, TYPE II OR UNSPEC TYPE, NOT UNCNTRLD Status: Chronic (8) DIVERTICULOSIS COLON (W/O MENT OF HEMORRHAGE) Status: Chronic (9) ESOPHAGEAL REFLUX Status: Chronic (10) HX-VENOUS THROMBOSIS&EMBOLISM Status: Chronic (11) HYPERLIPIDEMIA NEC/NOS Status: Chronic (12) HYPERTENSION NOS Status: Chronic (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 (14) 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 Status: Acute Immunizations History of Influenza Vaccine: Yes Influenza Vaccine Date: Feb 22, 2013 History of Tetanus Vaccine?: UTD Tetanus Immunization Date: Jul 23, 2005 History of Pneumococcal: Yes Pneumococcal Date: Jul 23, 2005 History of Hepatitis B Vaccine: No Multi-Drug Resistant Organisms History of MDRO: No Allergies Coded Allergies: ROBERTA Inhibitors (Verified Adverse Reaction, Severe, HYPERKALEMIA, 11/18/16) Home Medications Scheduled Aspirin (Aspirin Ec), 81 MG PO DAILY B-Complex Vitamins (B Complex), 1 CAP PO QAM Clopidogrel (Plavix), 75 MG PO QPM Dicyclomine Hcl (Dicyclomine Hcl), 1 CAP PO DAILY Furosemide (Lasix), 20 MG PO once or twice week Hydralazine Hcl (Apresoline), 10 MG PO BID Isosorbide Mononitrate Ext Rel (Imdur Ext Rel), 60 MG PO QPM Metoprolol Tartrate (Lopressor) (Lopressor), 50 MG PO BID Nutritional Supplements (Boost), 1 CAN PO DAILY Ranitidine (Zantac), 150 MG PO BID Simvastatin (Zocor), 20 MG PO QPM Miscellaneous Medications Acetaminophen (Tylenol), 325 MG PO Review of Systems Constitutional: No fever, No chills, No weakness Eyes: + problem reported (+headache), No worsening of vision Respiratory: No cough, No sputum, No wheezing, No shortness of breath, No dyspnea on exertion, No dyspnea at rest, No hemoptysis Cardiovascular: No chest pain, No edema, No palpitations Abdomen: + nausea, + vomiting, No pain, No diarrhea, No constipation, No GI bleeding Musculoskeletal: No joint pain, No muscle painm bilateral distal leg weakness and numbness with some edema Genitourinary - Male: No hematuria, No dysuria, No urinary frequency, No urinary urgency Neurologic: + vertigo, + balance problems, No memory loss, No paralysis, No weakness, No numbness/tingling Psychiatric: No depression symptoms Endocrine: No fatigue Hematologic / Lymphatic: No abnormal bleeding/bruising Integumentary: No rash Allergic / Immunologic: No environmental allergies, No seasonal allergies Family History Non contributory in light of patients age Social History Smoking Status: Former smoker Housing Status: lives alone Occupation Status: retired Allergies Coded Allergies: ROBERTA Inhibitors (Verified Adverse Reaction, Severe, HYPERKALEMIA, 11/18/16) Current Inpatient Medications Current Inpatient Medications Medications (Trade) Dose Ordered Sig/Prachi Route Start Time Stop Time Status Last Admin Dose Admin Heparin Sodium (Porcine) (Heparin Sq 5000 Unit/0.5ml) 5,000 unit Q8 SQ 11/19/16 06:00 12/19/16 05:59 11/19/16 05:37 5,000 UNIT Sodium Chloride 1,000 ml @ 80 mls/hr [id number] IV 11/19/16 03:00 12/19/16 02:59 11/19/16 03:19 80 MLS/HR Acetaminophen (Tylenol Tab) 650 mg Q4H PRN PO 11/19/16 00:30 12/19/16 00:29 Al Hydrox/Mg Hydrox/Simethicone (Maalox Max Susp) 15 ml Q4H PRN PO 11/19/16 00:30 12/19/16 00:29 Magnesium Hydroxide (Milk Of Magnesia Susp) 30 ml Q12H PRN PO 11/19/16 00:30 12/19/16 00:29 Ondansetron HCl (Zofran Inj) 4 mg Q6H PRN IV 11/19/16 00:30 12/19/16 00:29 Aspirin (Ecotrin Tab) 81 mg QAM PO 11/19/16 09:00 12/19/16 08:59 11/19/16 07:42 81 MG Polyethylene (Miralax Powder Packet) 17 gm DAILY PRN PO 11/19/16 00:30 12/19/16 00:29 Clopidogrel Bisulfate (plAVix TAB) 75 mg QPM PO 11/19/16 21:00 12/19/16 20:59 Dicyclomine HCl (Bentyl Cap) 10 mg DAILY PO 11/19/16 09:00 12/19/16 08:59 11/19/16 07:42 10 MG Hydralazine HCl (Apresoline Tab) 10 mg BID PO 11/19/16 09:00 12/19/16 08:59 11/19/16 07:42 10 MG Isosorbide Mononitrate (Imdur Ext Rel Tab) 60 mg QPM PO 11/19/16 21:00 12/19/16 20:59 Metoprolol Tartrate (Lopressor Tab) 50 mg BID PO 11/19/16 09:00 12/19/16 08:59 11/19/16 07:43 50 MG Ranitidine HCl (zANTac TAB) 150 mg BID PO 11/19/16 09:00 12/19/16 08:59 11/19/16 07:43 150 MG Simvastatin (Zocor Tab) 20 mg QPM PO 11/19/16 21:00 12/19/16 20:59 Morphine Sulfate (MoRPHine SULFATE INJ) 2 mg Q4 PRN IV 11/19/16 00:30 12/03/16 00:29 11/19/16 07:47 2 MG Meclizine HCl (Antivert Tab) 25 mg TID PRN PO 11/19/16 00:30 12/19/16 00:29 Ioversol (Optiray 320) 100 ml UD PRN IV 11/19/16 01:00 11/23/16 00:59 Physical Exam Vital Signs (Past 24 Hrs): Date Time Temp Pulse Resp B/P (MAP) Pulse Ox O2 Delivery O2 Flow Rate FiO2 11/19/16 12:00 Room Air 11/19/16 11:33 36.5 69 18 112/62 (79) 99 Room Air 11/19/16 08:17 37.0 62 18 139/60 (86) 99 11/19/16 08:00 Room Air 11/19/16 04:38 98 Room Air 11/19/16 03:10 36.9 102 20 155/78 (103) 98 Room Air 11/19/16 01:57 36.5 88 18 152/77 96 Room Air 11/19/16 01:01 127/60 11/19/16 01:00 61 10 127/60 94 Room Air 11/19/16 00:30 61 13 129/57 94 Room Air 11/19/16 00:00 60 16 138/80 96 Room Air 11/18/16 23:30 61 17 123/64 96 Room Air 11/18/16 23:17 127/63 11/18/16 23:00 62 13 127/63 95 Room Air 11/18/16 22:19 64 15 98 11/18/16 22:04 64 16 98 11/18/16 22:01 136/83 11/18/16 21:49 66 18 97 11/18/16 21:19 64 15 96 11/18/16 21:14 80 11/18/16 21:10 98 Room Air 11/18/16 21:09 146/75 11/18/16 19:26 36.6 99 18 148/61 97 Room Air Physical Exam: Constitutional: There were no vitals taken for this visit., Appearance nourished , elderly and appropriate for stated age somewhat thin and hearing impaired reliability as a historian fair Ears, Nose, Mouth and Throat: mucous membranes moist, no injection and skin normal, eyes normal mild hearing impairment worse on the left no nystagmus or eom limitatioon and gross visual acuity is about 20/40 Neck: supple but has pain in suboccipital and high cervical region with rotation of head and flexion and extension Cardiovascular: normal S-1 and S-2 and regular rate and rhythm Respiratory: clear to auscultation (CTA) and no rales, ronchi or wheeze Musculoskeletal: no peripheral edema and good distal pulses Has atrophy of anterior compartment more than posterior compartment distal leg muscles Skin: normal and intact minor senile thinning Eyes: extraocular muscles intact (EOMI) and pupils equal, round and reactive to light (PERRL) as above normal eom and no nystagmus NEUROLOGIC EXAMINATION: Mental status: Alert and interactive Oriented to full date and location Oriented to person Speech fluent with no evidence of aphasia Cranial Nerves Normal findings for Cranial Nerves II - XII Reflexes: Deep tendon reflexes were symmetrical and graded 1/5 in arms but 0/5 at knees and ankles toes bilaterally down Sensory: loss of vibratory sense below knees proprioception slight off in toes and temperature and pin only slightly down over feet Coordination: Normal on [id number], [id number] Gait not tested but no truncal ataxia while seated on bed and Hallpike maneuvers actually negative save for some minor dysequilibrium and major complaints of neck pain and "grinding " Motor: Negative for pronator drift of out stretched arms with eyes closed. Strength: Normal - 5/5 in upper extremities and at most 1/5 in anterior compartments wnd 3 /5 in paoterior compartments and normal in quads and leg flexors Laboratory Results Past 24 Hours: 11/19/16 05:39 11/19/16 05:39 Test 11/18/16 21:45 11/19/16 05:39 11/19/16 07:55 Immature Granulocyte % (Auto) 0.1 % White Blood Count 7.19 K/uL (4.8-10.8) Red Blood Count 4.51 M/uL (4.7-6.1) 4.09 M/uL (4.7-6.1) Hemoglobin 13.4 g/dL (14.0-18.0) Hematocrit 40.9 % (42-52) Mean Corpuscular Volume 90.7 fL (80-100) 90.5 fL (80-100) Mean Corpuscular Hemoglobin 29.7 pg (25-34) 30.3 pg (25-34) Mean Corpuscular Hemoglobin Concent 32.8 g/dl (32-36) 33.5 g/dl (32-36) Platelet Count 265 K/uL (130-400) Mean Platelet Volume 9.0 fL (7.4-10.4) 8.7 fL (7.4-10.4) Neutrophils (%) (Auto) 60.7 % Lymphocytes (%) (Auto) 28.7 % Monocytes (%) (Auto) 7.1 % Eosinophils (%) (Auto) 2.8 % Basophils (%) (Auto) 0.6 % Neutrophils # (Auto) 4.37 K/uL (1.4-6.5) Lymphocytes # (Auto) 2.06 K/uL (1.2-3.4) Monocytes # (Auto) 0.51 K/uL (0.11-0.59) Eosinophils # (Auto) 0.20 K/uL (0-0.5) Basophils # (Auto) 0.04 K/uL (0-0.2) Immature Granulocyte # (Auto) 0.01 K/uL (0.00-0.02) Prothrombin Time 11.0 SECONDS (9.0-12.0) Prothromb Time International Ratio 1.0 (0.9-1.1) Activated Partial Thromboplast Time 25.3 SECONDS (21.0-31.0) Partial Thromboplastin Ratio 1.0 Troponin I < 0.015 ng/ml (0-0.045) RDW Standard Deviation 47.5 fL (36.4-46.3) RDW Coefficient of Variation 14.3 % (11.5-14.5) Anion Gap 6.0 mmol/L (3-11) Est Creatinine Clear Calc Drug Dose 42.6 ml/min Estimated GFR () 62.2 Estimated GFR (Non- 53.7 BUN/Creatinine Ratio 15.5 (10-20) Calcium Level 8.6 mg/dl (8.5-10.1) Urine Color YELLOW Urine Appearance CLEAR (CLEAR) Urine pH 5.0 (4.5-7.5) Urine Specific [place] > 1.045 (1.000-1.030) Urine Protein NEG (NEG) Urine Glucose (UA) NEG (NEG) Urine Ketones NEG (NEG) Urine Occult Blood NEG (NEG) Urine Nitrite NEG (NEG) Urine Bilirubin NEG (NEG) Urine Urobilinogen NEG (NEG) Urine Leukocyte Esterase NEG (NEG) Imaging Performing Location: [facility], Diagnostic Imaging Dept [address] [place] [address] Phone: [phone] Patient Name: JESI CRUM Interpreting Physician: Atilio Sánchez M.D. Report Signed By: Atilio Sánchez M.D. Digital Retoucher: Atilio Sánchez Date: 1930 Ordering Physician: Juliocesar Humphrey M.D. Room/Bed: Family Physician: Aurelio Carter M.D.(NADEEN) SC: EVELYN Primary Care Physician: Aurelio Carter M.D.(NADEEN) Procedure(s): HEAD WITHOUT CONTRAST (CT) Attending Physician: Order Number(s): [id number] Admitting Physician: Date of Service: 11/18/16 CT SCAN OF THE BRAIN WITHOUT IV CONTRAST CLINICAL HISTORY: Headache. Stroke-like symptoms. COMPARISON STUDY: CT of the brain dated 09/20/2016. TECHNIQUE: Unenhanced axial CT scan of the brain is performed from the vertex to the skull base. CT DOSE: 614.27 mGy.cm FINDINGS: Brain parenchyma: There are age-related involutional changes noting advanced subcortical and periventricular microangiopathic change. There is no hemorrhage, mass effect, or evidence of acute territorial ischemia by CT criteria. 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 Mineralization is noted in the basal ganglia. Jerez-white matter is preserved. No extra-axial fluid collection is seen. Ventricles, sulci, cisterns: Prominent secondary to involutional change. Intracranial vasculature: There is atherosclerotic calcification of the cavernous carotid and vertebral arteries. Calvarium: Unremarkable. Sinuses and mastoids: Trace mucosal thickening is seen in the left maxillary antrum. The remaining paranasal sinuses are clear. The mastoid air cells are well pneumatized. Orbits: The bony orbits are grossly intact. There are bilateral ocular lens implants. IMPRESSION: Senescent changes as above with no hemorrhage, mass effect, or evidence of acute territorial ischemia by CT criteria. Electronically signed by: Atilio Sánchez M.D. 11/18/2016 9:44 PM Dictated Date/Time: 11/18/2016 9:41 PM Performing Location: [facility], Diagnostic Imaging Dept [address] [place] [address] Phone: [phone] Patient Name: JESI CRUM Interpreting Physician: Uzair Castillo M.D. Report Signed By: Uzair Castillo M.D. Digital Retoucher: Uzair Castillo Date: 1930 Ordering Physician: Jean-Pierre Page DO Room/Bed: [facility] Family Physician: Aurelio Carter M.D.(NADEEN) SC: C.2E Primary Care Physician: Aurelio Carter M.D.(NADEEN) Procedure(s): ANGIOGRAPHY HEAD COMBO Attending Physician: Debbie Ayala D.O. Order Number(s): [id number] Admitting Physician: Jean-Pierre Page DO Date of Service: 11/18/1706/08/17 CT ANGIOGRAPHY HEAD COMBO CT DOSE: CLINICAL HISTORY: Headache and dizziness TECHNIQUE: Unenhanced images were obtained the brain. The patient was then imaged in a dynamic helical fashion during intravenous administration of 120 cc of Optiray 320. MIP imaging was performed. COMPARISON STUDY: Noncontrast head CT dated 11/18/2016 FINDINGS: No intra or extra-axial mass lesions are visualized. There is extensive white matter hypodensities, likely a small vessel basis. There is no acute hemorrhage. There is no midline shift. There is no hydrocephalus. The distal left vertebral is occluded. The left vertebral fills in a retrograde fashion. There is no evidence of intracranial stenosis. The dural venous sinuses appear patent. 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 IMPRESSION: 1. 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 11/19/2016 7:27 AM Dictated Date/Time: 11/19/2016 7:23 AM Performing Location: [facility], Diagnostic Imaging Dept [address] [place] [address] Phone: [phone] Patient Name: JESI CRUM Interpreting Physician: Uzair Castillo M.D. Report Signed By: Uzair Castillo M.D. Digital Retoucher: Uzair Castillo Date: 1930 Ordering Physician: Jean-Pierre Page DO Room/Bed: [facility] Family Physician: Aurelio Carter M.D.(NADEEN) SC: C.2E Primary Care Physician: Aurelio Carter M.D.(NADEEN) Procedure(s): NECK ANGIO WITH CONTRAST Attending Physician: Debbie Ayala D.O. Order Number(s): [id number] Admitting Physician: Jean-Pierre Page DO Date of Service: 11/18/1706/08/17 CT NECK ANGIO WITH CONTRAST CLINICAL HISTORY: Headache, dizziness, neck pain. COMPARISON STUDY: No previous studies for comparison. TECHNIQUE: CT angiography was performed from the aortic arch to the skull base. MIP imaging was performed. The patient was scanned in a dynamic helical fashion during intravenous administration of 120 cc of [address]. [address] DOSE: 1425.13 mGy.cm Technique: CT angiogram of the carotid and vertebral arteries was obtained using intravenous contrast and 3-D reconstruction. NASCET criteria was utilized. Findings: Visualized portions of the lung apices reveal multiple upper lung zone pulmonary nodules, likely infectious/inflammatory. There are atheromatous changes present at the right carotid bifurcation. There is a high-grade stenosis of the right external carotid artery. There is no evidence of 11 significant internal carotid artery stenosis. Moderate atheromatous changes are present at the bifurcation. There is no evidence of hemodynamic significant internal or external carotid artery stenosis. The right vertebral artery is dominant. The left vertebral artery occludes distally. More proximally, there are multifocal stenoses. IMPRESSION: 1. Dominant right vertebral 2. Multifocal left vertebral stenoses which occludes the C1 level 3. No evidence of internal carotid artery stenosis 4. 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 Extensive bilateral fibronodular apical pulmonary opacities. Electronically signed by: Uzair Castillo M.D. 11/19/2016 7:22 AM Dictated Date/Time: 11/19/2016 7:15 AM Impression High cervical pain and 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 He should hav assessment of the craniocervical junction with a cervical ct to be sure there is not atlantooccipital instability odontoid issue etc and a ct has been ordered. while I doubt that he has a cva a small cerebellar infarction could easily be missed on ct scan which is the only imaging that can be done with his pacemaker on board. 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 and this probably needs evaluated outpatient with an emg and some labs but exam suggests this is longstanding and suspect no causation will be established Plan Would get cervical spine ct to check craniocervical junction and another brain ct to be certain a small non lateralizing cerebellar infarction will be detected but doubt continue antivert and get ent outpatient consult if vertigo persists Will need outpatient neurology visit to address the polyneuropathy and this is not urgent He may need pain management for high cervical injection therapy if headaches continue I am really reluctant to rx any medications that might have sedating properties in this elderly man with a host of comorbidities but might consider a very cautious and slow up dosing of neurontin but this would be outpatient PT OT evaluations should address safety issues at home as he lives along and has a high fall risk
[2016-11-19] MEDS ORDERED: NURSING VERBAL MED ORDER ONE (15:15)
--- NOTE | 2016-11-19 16:55 | DIAGNOSTIC IMAGING REPORT ---
CT CERVICAL SPINE WITH CT DOSE: 663.71 mGycm CLINICAL HISTORY: Neck pain. TECHNIQUE: The patient was scanned in a dynamic helical fashion during intravenous administration 112 cc of Optiray 320. COMPARISON STUDY: None. FINDINGS: There is mucosal thickening within the right lateral sphenoid. There is a high-grade stenosis of the right external carotid artery. There is a dominant right vertebral artery. There is no pathologic adenopathy. No soft tissue masses are visualized within the neck. There are multiple biapical pulmonary nodules and fibronodular opacities. No acute fractures or traumatic subluxations are visualized. There are multilevel degenerative changes present. IMPRESSION: 1. Mild multilevel degenerative changes most pronounced at the C6-7 level 2. No fractures identified 3. High-grade stenosis of the right external carotid artery 4. No evidence of pathologic adenopathy 5. Multiple biapical pulmonary nodules and fibronodular opacities Electronically signed by: Uzair Castillo M.D. 11/19/2016 4:54 PM Dictated Date/Time: 11/19/2016 4:50 PM
--- NOTE | 2016-11-19 18:20 | Progress Note ---
Medicine Progress Note Date & Time of Visit: Nov 19, 2016 at 18:10. Subjective Patient reports ongoing dizziness and LUNDY; he states they seem to be better than yesterday but are still present. He mainly has vertigo that is worse with any head movements. No overnight events noted. Tolerating PO. No N/V/abdominal pain. Objective Last 8 Hrs Date Time Temp Pulse Resp B/P (MAP) Pulse Ox O2 Delivery O2 Flow Rate FiO2 11/19/16 16:30 96 Room Air 11/19/16 16:00 37.0 63 20 111/49 (69) 96 11/19/16 15:24 78 98 11/19/16 12:00 Room Air 11/19/16 11:33 36.5 69 18 112/62 (79) 99 Room Air Physical Exam: GENERAL: Patient is in no acute distress. HEENT: No acute trauma, normocephalic, mucous membranes moist, no nasal congestion, no scleral icterus. LITTLE TRAVERSE. NECK: No stridor, trachea is midline. LUNGS: Clear to auscultation bilaterally, no wheeze, no rhonchi, breath sounds equal. HEART: Without gallops or rubs, regular rate and rhythm. + loud TANISHA ABDOMEN: Soft, nontender, bowel sounds positive EXTREMITIES: No cyanosis or edema NEUROLOGIC: Oriented x 3, no acute motor or sensory deficits, no focal weakness. SKIN: No rash, no jaundice, no diaphoresis. Laboratory Results: Last 24 Hours Test 11/18/16 21:45 11/19/16 05:39 11/19/16 07:55 11/19/16 14:50 White Blood Count 7.19 K/uL 6.48 K/uL Red Blood Count 4.51 M/uL 4.09 M/uL Hemoglobin 13.4 g/dL 12.4 g/dL Hematocrit 40.9 % 37.0 % Mean Corpuscular Volume 90.7 fL 90.5 fL Mean Corpuscular Hemoglobin 29.7 pg 30.3 pg Mean Corpuscular Hemoglobin Concent 32.8 g/dl 33.5 g/dl Platelet Count 265 K/uL 241 K/uL Mean Platelet Volume 9.0 fL 8.7 fL Neutrophils (%) (Auto) 60.7 % Lymphocytes (%) (Auto) 28.7 % Monocytes (%) (Auto) 7.1 % Eosinophils (%) (Auto) 2.8 % Basophils (%) (Auto) 0.6 % Neutrophils # (Auto) 4.37 K/uL Lymphocytes # (Auto) 2.06 K/uL Monocytes # (Auto) 0.51 K/uL Eosinophils # (Auto) 0.20 K/uL Basophils # (Auto) 0.04 K/uL RDW Standard Deviation 47.9 fL 47.5 fL RDW Coefficient of Variation 14.3 % 14.3 % Immature Granulocyte % (Auto) 0.1 % Immature Granulocyte # (Auto) 0.01 K/uL Prothrombin Time 11.0 SECONDS Prothromb Time International Ratio 1.0 Activated Partial Thromboplast Time 25.3 SECONDS Partial Thromboplastin Ratio 1.0 Sodium Level 144 mmol/L 145 mmol/L Potassium Level 4.0 mmol/L 4.0 mmol/L Chloride Level 109 mmol/L 110 mmol/L Carbon Dioxide Level 28 mmol/L 29 mmol/L Anion Gap 7.0 mmol/L 6.0 mmol/L Blood Urea Nitrogen 22 mg/dl 19 mg/dl Creatinine 1.40 mg/dl 1.20 mg/dl Est Creatinine Clear Calc Drug Dose 35.3 ml/min 42.6 ml/min Estimated GFR () 51.6 62.2 Estimated GFR (Non- 44.5 53.7 BUN/Creatinine Ratio 15.9 15.5 Random Glucose 120 mg/dl 99 mg/dl Calcium Level 9.3 mg/dl 8.6 mg/dl Troponin I < 0.015 ng/ml Urine Color YELLOW Urine Appearance CLEAR Urine pH 5.0 Urine Specific Frost > 1.045 Urine Protein NEG Urine Glucose (UA) NEG Urine Ketones NEG Urine Occult Blood NEG Urine Nitrite NEG Urine Bilirubin NEG Urine Urobilinogen NEG Urine Leukocyte Esterase NEG Erythrocyte Sedimentation Rate 8 mm/hr Vitamin B12 Level 458 pg/mL Thyroid Stimulating Hormone (TSH) 1.250 uIu/ml Diagnostic Imaging: CTA Report: IMPRESSION: 1. Dominant right vertebral 2. Multifocal left vertebral stenoses which occludes the C1 level 3. No evidence of internal carotid artery stenosis 4. 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 Extensive bilateral fibronodular apical pulmonary opacities. Electronically signed by: Uzair Castillo M.D. CT Cervical: IMPRESSION: 1. Mild multilevel degenerative changes most pronounced at the C6-7 level 2. No fractures identified 3. High-grade stenosis of the right external carotid artery 4. No evidence of pathologic adenopathy 5. Multiple biapical pulmonary nodules and fibronodular opacities Electronically signed by: Uzair Castillo M.D. Assessment & Plan Headache and Vertigo: -patient presented with LUNDY, dizziness, vertigo, nausea/vomiting/ambulatory issues -Head CT negative -CTA report: Multifocal left vertebral stenoses which occludes the C1 level, No evidence of internal carotid artery stenosis, Severe stenosis of the right external carotid artery -was given meclizine and phenergan and symptoms did not improve -worsening headache as well -has hx of multiple TIA, last in 2013 -Neurology consulted, appreciate recs, CT cervical spine and a repeat CT ordered -continue PRN analgesia -meclizine 25mg TID PRN -PT/OT consulted -check orthostatics CAD: -with prior CABG -stable, no current symptoms -continue aspirin, b-сергей, statin, Imdur, Plavix Sinus Node Dysfunction: -s/p pacemaker placement HTN: -continue Hydralazine DVT prophylaxis: -heparin subcutaneous Spoke to the patients daughter Suad and her son via telephone and updated them Current Inpatient Medications: Current Inpatient Medications Medications (Trade) Dose Ordered Sig/Prachi Route Start Time Stop Time Status Last Admin Dose Admin Heparin Sodium (Porcine) (Heparin Sq 5000 Unit/0.5ml) 5,000 unit Q8 SQ 11/19/16 06:00 12/19/16 05:59 11/19/16 14:09 5,000 UNIT Sodium Chloride 1,000 ml @ 80 mls/hr [id number] IV 11/19/16 03:00 12/19/16 02:59 Future Hold 11/19/16 03:19 80 MLS/HR Acetaminophen (Tylenol Tab) 650 mg Q4H PRN PO 11/19/16 00:30 12/19/16 00:29 Al Hydrox/Mg Hydrox/Simethicone (Maalox Max Susp) 15 ml Q4H PRN PO 11/19/16 00:30 12/19/16 00:29 Magnesium Hydroxide (Milk Of Magnesia Susp) 30 ml Q12H PRN PO 11/19/16 00:30 12/19/16 00:29 Ondansetron HCl (Zofran Inj) 4 mg Q6H PRN IV 11/19/16 00:30 8/7/17 00:29 Aspirin (Ecotrin Tab) 81 mg QAM PO 11/19/16 09:00 12/19/16 08:59 11/19/16 07:42 81 MG Polyethylene (Miralax Powder Packet) 17 gm DAILY PRN PO 11/19/16 00:30 12/19/16 00:29 Clopidogrel Bisulfate (plAVix TAB) 75 mg QPM PO 11/19/16 21:00 12/19/16 20:59 Dicyclomine HCl (Bentyl Cap) 10 mg DAILY PO 11/19/16 09:00 12/19/16 08:59 11/19/16 07:42 10 MG Hydralazine HCl (Apresoline Tab) 10 mg BID PO 11/19/16 09:00 12/19/16 08:59 11/19/16 07:42 10 MG Isosorbide Mononitrate (Imdur Ext Rel Tab) 60 mg QPM PO 11/19/16 21:00 12/19/16 20:59 Metoprolol Tartrate (Lopressor Tab) 50 mg BID PO 11/19/16 09:00 12/19/16 08:59 11/19/16 07:43 50 MG Ranitidine HCl (zANTac TAB) 150 mg BID PO 11/19/16 09:00 12/19/16 08:59 11/19/16 07:43 150 MG Simvastatin (Zocor Tab) 20 mg QPM PO 11/19/16 21:00 12/19/16 20:59 Morphine Sulfate (MoRPHine SULFATE INJ) 2 mg Q4 PRN IV 11/19/16 00:30 12/03/16 00:29 11/19/16 07:47 2 MG Meclizine HCl (Antivert Tab) 25 mg TID PRN PO 11/19/16 00:30 12/19/16 00:29 Ioversol (Optiray 320) 100 ml UD PRN IV 11/19/16 01:00 11/23/16 00:59 Ioversol (Optiray 320) 100 ml UD PRN IV 11/19/16 15:00 11/23/16 14:59
[2016-11-19] MEDS: SIMVASTATIN 20 MG TAB PO SCH (21:11)
[2016-11-19] MEDS: ISOSORBIDE MONONITRATE 60 MG TABCR PO SCH (21:12)
[2016-11-19] MEDS: CLOPIDOGREL BISULFATE 75 MG TAB PO SCH (21:12)
[2016-11-20] VITALS: BP 99/40; PULSE 61; TEMP 36.5; O2SAT 95
[2016-11-20 03:35] VITALS: BP 108/55; PULSE 71; TEMP 36.8; O2SAT 95
[2016-11-20] MEDS: HEPARIN SOD 5000 UNIT/0.5 ML CARP SQ SCH ×3 (05:45→21:14)
[2016-11-20 07:23] VITALS: BP 92/49; PULSE 62; TEMP 36.7; O2SAT 94
[2016-11-20] MEDS: DICYCLOMINE HCL 10 MG CAP PO SCH (07:46)
[2016-11-20] MEDS: ASPIRIN 81 MG ECTAB PO SCH (07:47)
[2016-11-20] MEDS: RANITIDINE HCL 150 MG TAB PO SCH ×2 (07:47→21:07)
[2016-11-20] MEDS: METOPROLOL TARTRATE 50 MG TAB PO SCH ×2 (07:53→21:06)
[2016-11-20] MEDS: HydrALAZINE 10 MG TAB PO SCH ×2 (07:53→21:05)
--- NOTE | 2016-11-20 09:11 | DIAGNOSTIC IMAGING REPORT ---
CT SCAN OF THE BRAIN WITHOUT IV CONTRAST CLINICAL HISTORY: Strokelike symptoms. COMPARISON STUDY: CT of the brain dated 11/18/[address] angiogram of the brain dated 11/19/2016. TECHNIQUE: Unenhanced axial CT scan of the brain is performed from the vertex to the skull base. CT DOSE: 558.98 mGy.cm FINDINGS: Brain parenchyma: There are age-related involutional changes noting advanced subcortical and periventricular microangiopathic change. There is no hemorrhage, mass effect, or evidence of acute territorial ischemia by CT criteria. 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 Mineralization is noted in the basal ganglia. Jerez-white matter is preserved. No extra-axial fluid collection is seen. Ventricles, sulci, cisterns: Prominent secondary to involutional change. Intracranial vasculature: There is atherosclerotic calcification of the cavernous carotid and vertebral arteries. Calvarium: Unremarkable. Sinuses and mastoids: Trace mucosal thickening is seen in the left maxillary antrum. The remaining paranasal sinuses are clear. The mastoid air cells are well pneumatized. Orbits: The bony orbits are grossly intact. There are bilateral ocular lens implants. IMPRESSION: Senescent changes as above with no hemorrhage, mass effect, or evidence of acute territorial ischemia by CT criteria. No significant change from recent prior studies. Electronically signed by: Atilio Sánchez M.D. 11/20/2016 9:10 AM Dictated Date/Time: 11/20/2016 9:07 AM
--- NOTE | 2016-11-20 10:20 | Neurology Progress Notes ---
Neurology Progress Note Date of Service Nov 20, 2016. 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 Objective Date Time Temp Pulse Resp B/P (MAP) Pulse Ox O2 Delivery O2 Flow Rate FiO2 11/20/16 08:00 Room Air 11/20/16 07:23 36.7 62 18 92/49 (63) 94 Room Air 11/20/16 03:35 36.8 71 18 108/55 (72) 95 Room Air 11/20/16 03:24 Room Air 11/20/16 00:00 36.5 61 19 99/40 (59) 95 Room Air 11/19/16 23:45 Room Air 11/19/16 20:08 36.8 73 16 133/61 (85) 96 Room Air 11/19/16 20:00 96 Room Air 11/19/16 16:30 96 Room Air 11/19/16 16:00 37.0 63 20 111/49 (69) 96 11/19/16 15:24 78 98 11/19/16 12:00 Room Air 11/19/16 11:33 36.5 69 18 112/62 (79) 99 Room Air Last 24 Hours Test 11/19/16 14:50 Erythrocyte Sedimentation Rate 8 mm/hr Vitamin B12 Level 458 pg/mL Thyroid Stimulating Hormone (TSH) 1.250 uIu/ml IMPRESSION: Senescent changes as above with no hemorrhage, mass effect, or evidence of acute territorial ischemia by CT criteria. No significant change from recent prior studies. Electronically signed by: Atilio Sánchez M.D. 11/20/2016 9:10 AM Dictated Date/Time: 11/20/2016 9:07 A IMPRESSION: 1. Mild multilevel degenerative changes most pronounced at the C6-7 level 2. No fractures identified 3. High-grade stenosis of the right external carotid artery 4. No evidence of pathologic adenopathy 5. Multiple biapical pulmonary nodules and fibronodular opacities Electronically signed by: Uzair Castillo M.D. 11/19/2016 4:54 PM Dictated Date/Time: 11/19/2016 4:50 PMM Exam: Hallpike maneuvers nos suggest element of bppv as vertigo is very brief and resolves after a few seconds neck pain still is clearly induced by neck rotation and extension but no radicular components on spurlings testing maneuvers Neuropathy is significant with virtually no antigravity strength in anterior compartments and with significant atrophy, some weakness in plantar flexion and areflexia with distal sensory loss to vibration light touch and temperature and pain upper extremity evaluation is unremarkable or only mildly off in terms of vibratory sense in fingers and no weakness or atrophy and with only minor reduction in dtrs Impression / Plan High cervical pain and 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 He should hav assessment of the craniocervical junction with a cervical ct to be sure there is not atlantooccipital instability odontoid issue etc and a ct has been ordered. while I doubt that he has a cva a small cerebellar infarction could easily be missed on ct scan which is the only imaging that can be done with his pacemaker on board. 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 and this probably needs evaluated outpatient with an emg and some labs but exam suggests this is longstanding and suspect no causation will be established Upon review or todays exam and the resultsof the cervical ct and head ct there may well be elements of bppv and would see if pt could try an eply I am not optimistic but it is worth a try and would suggest a pain management consult for possible cervical injections to see if some of the mid cervical pain and potential cervico genic headaches would respond He is a bad candidate for meds due to preexisting gait instability and high added risk of falling with any sedation. Discussed with Dr Ayala
[2016-11-20 11:56] VITALS: BP 107/59; PULSE 69; TEMP 36.7; O2SAT 94
[2016-11-20] MEDS: MECLIZINE HCL 25 MG TAB PO SCH ×2 (14:04→21:04)
[2016-11-20] MEDS: MoRPHine SULFATE 2 MG/ML CARP IV PRN (14:10)
[2016-11-20 15:50] VITALS: BP_SYST 114; BP_SYST 118; BP_SYST 127; BP_DIAS 60; BP_DIAS 68; BP_DIAS 69; PULSE 69; PULSE 73; PULSE 82; TEMP 36.9; O2SAT 94
--- NOTE | 2016-11-20 18:58 | Progress Note ---
Medicine Progress Note Date & Time of Visit: Nov 20, 2016 at 18:58. Subjective Patient reports ongoing headache/neck pain from his left upper back to the top of head on the left. He has dizziness worse with movement. He also complains of back pain today. No overnight events noted. Tolerating PO. No N/V, CP or palpitations. Objective Last 8 Hrs Date Time Temp Pulse Resp B/P (MAP) Pulse Ox O2 Delivery O2 Flow Rate FiO2 11/20/16 16:00 Room Air 11/20/16 15:50 36.9 69 18 118/69 (85) 94 Room Air 73 127/60 (82) 82 114/68 (83) 11/20/16 12:00 Room Air 11/20/16 11:56 36.7 69 18 107/59 (75) 94 Physical Exam: GENERAL: Patient is in no acute distress. HEENT: No acute trauma, normocephalic, mucous membranes moist, no nasal congestion, no scleral icterus. ATKA. NECK: No stridor, trachea is midline. LUNGS: Clear to auscultation bilaterally, no wheeze, no rhonchi, breath sounds equal. HEART: Without gallops or rubs, regular rate and rhythm. + loud TANISHA ABDOMEN: Soft, nontender, bowel sounds positive EXTREMITIES: No cyanosis or edema NEUROLOGIC: Oriented x 3, no acute motor or sensory deficits, no focal weakness. SKIN: No rash, no jaundice, no diaphoresis. Assessment & Plan Headache and Vertigo: -patient presented with LUNDY, dizziness, vertigo, nausea/vomiting/ambulatory issues -Head CT negative -CTA report: Multifocal left vertebral stenoses which occludes the C1 level, No evidence of internal carotid artery stenosis, Severe stenosis of the right external carotid artery -was given meclizine and phenergan and symptoms did not improve -worsening headache as well -has hx of multiple TIA, last in 2013 -Neurology consulted, appreciate recs, CT cervical spine and a repeat CT ordered -continue PRN analgesia -meclizine 25mg TID, patient was not requesting thus changed to scheduled -PT/OT consulted, would appreciate eval for vertigo/Kathy maneuver as per Neuro recommendations -check orthostatics-negative -Pain management consulted for evaluation of injections to mitigate patients headache as the patient is not a good candidate for narcotic medications given his fall risk and age CAD: -with prior CABG -stable, no current symptoms -continue aspirin, b-сергей, statin, Imdur, Plavix Sinus Node Dysfunction: -s/p pacemaker placement HTN: -continue Hydralazine DVT prophylaxis: -heparin subcutaneous Current Inpatient Medications: Current Inpatient Medications Medications (Trade) Dose Ordered Sig/Prachi Route Start Time Stop Time Status Last Admin Dose Admin Heparin Sodium (Porcine) (Heparin Sq 5000 Unit/0.5ml) 5,000 unit Q8 SQ 11/19/16 06:00 12/19/16 05:59 11/20/16 14:07 5,000 UNIT Sodium Chloride 1,000 ml @ 80 mls/hr [id number] IV 11/19/16 03:00 12/19/16 02:59 Future Hold 11/19/16 03:19 80 MLS/HR Acetaminophen (Tylenol Tab) 650 mg Q4H PRN PO 11/19/16 00:30 12/19/16 00:29 Al Hydrox/Mg Hydrox/Simethicone (Maalox Max Susp) 15 ml Q4H PRN PO 11/19/16 00:30 12/19/16 00:29 Magnesium Hydroxide (Milk Of Magnesia Susp) 30 ml Q12H PRN PO 11/19/16 00:30 12/19/16 00:29 Ondansetron HCl (Zofran Inj) 4 mg Q6H PRN IV 11/19/16 00:30 12/19/16 00:29 Aspirin (Ecotrin Tab) 81 mg QAM PO 11/19/16 09:00 12/19/16 08:59 11/20/16 07:47 81 MG Polyethylene (Miralax Powder Packet) 17 gm DAILY PRN PO 11/19/16 00:30 12/19/16 00:29 Clopidogrel Bisulfate (plAVix TAB) 75 mg QPM PO 11/19/16 21:00 12/19/16 20:59 11/19/16 21:12 75 MG Dicyclomine HCl (Bentyl Cap) 10 mg DAILY PO 11/19/16 09:00 12/19/16 08:59 11/20/16 07:46 10 MG Hydralazine HCl (Apresoline Tab) 10 mg BID PO 11/19/16 09:00 12/19/16 08:59 11/19/16 21:12 10 MG Isosorbide Mononitrate (Imdur Ext Rel Tab) 60 mg QPM PO 11/19/16 21:00 12/19/16 20:59 11/19/16 21:12 60 MG Metoprolol Tartrate (Lopressor Tab) 50 mg BID PO 11/19/16 09:00 12/19/16 08:59 11/19/16 21:11 50 MG Ranitidine HCl (zANTac TAB) 150 mg BID PO 11/19/16 09:00 12/19/16 08:59 11/20/16 07:47 150 MG Simvastatin (Zocor Tab) 20 mg QPM PO 11/19/16 21:00 12/19/16 20:59 11/19/16 21:11 20 MG Morphine Sulfate (MoRPHine SULFATE INJ) 2 mg Q4 PRN IV 11/19/16 00:30 12/03/16 00:29 11/20/16 14:10 2 MG Ioversol (Optiray 320) 100 ml UD PRN IV 11/19/16 01:00 11/23/16 00:59 Ioversol (Optiray 320) 100 ml UD PRN IV 11/19/16 15:00 11/23/16 14:59 Meclizine HCl (Antivert Tab) 25 mg TID PO 11/20/16 14:00 12/19/16 00:29 11/20/16 14:04 25 MG
[2016-11-20 19:55] VITALS: BP 132/72; PULSE 65; TEMP 36.4; O2SAT 93
[2016-11-20] MEDS ORDERED: NURSING VERBAL MED ORDER ONE ×2 (20:00→20:45)
[2016-11-20] MEDS: MAGNESIUM SULFATE 1GM / D5W 1 GM in PREMIXED IN D5W 100 ML IV SCH ×2 (20:45→20:46)
[2016-11-20] MEDS: ISOSORBIDE MONONITRATE 60 MG TABCR PO SCH (21:05)
[2016-11-20] MEDS: CLOPIDOGREL BISULFATE 75 MG TAB PO SCH (21:06)
[2016-11-20] MEDS: SIMVASTATIN 20 MG TAB PO SCH (21:07)
[2016-11-21 00:06] VITALS: BP 109/49; PULSE 66; TEMP 36.9; O2SAT 92
[2016-11-21 04:24] VITALS: BP 124/48; PULSE 61; TEMP 37; O2SAT 94
[2016-11-21] MEDS: HEPARIN SOD 5000 UNIT/0.5 ML CARP SQ SCH (05:44)
[2016-11-21 05:54] LABS: HEMATOCRIT 34.9 % (42-52); MEAN CELL VOLUME 90.2 fL (80-100); MEAN CORPUSCULAR HEMOGLOBIN 29.5 pg (25-34); MEAN CORPUSCULAR HGB CONC 32.7 g/dl (32-36); MEAN PLATELET VOLUME 8.6 fL (7.4-10.4); PLATELET COUNT 241 K/uL (130-400); RED BLOOD COUNT 3.87 M/uL (4.7-6.1); WHITE BLOOD COUNT 6.98 K/uL (4.8-10.8)
[2016-11-21 06:31] LABS: BUN/CREATININE RATIO 18.1 (10-20); CALCIUM 8.4 mg/dl (8.5-10.1); CREATININE 1.3 mg/dl (0.60-1.40); POTASSIUM 3.8 mmol/L (3.5-5.1)
--- NOTE | 2016-11-21 07:02 | Clinical Documentation Query ---
Dr. GLYNN,LEVI : CLINICAL DOCUMENTATION QUERY Patient is an 86 year old male admitted with headache and vertigo. Has a history of multiple TIA's. MRI not possible due to pacemaker. Neurology has seen in consultation. PT/OT consulted. As appropriate, consider documentation as suggested below. In your clinical opinion is this patient being managed for: ( ) Vertigo due to small vessel disease ( x ) Other explanation of clinical findings (Please Explain) Benign positional vertigo vs migraines ( ) Unable to determine (Please Define) ( ) Need to Discuss ( ) Not Agree The medical record reflects the following clinical findings, treatment, and risk factors. Clinical Indicators: As above Treatment: Radiology, Neurology consultation, meclizine, PT/OT Risk Factors:Age, hypertension, DM, CAD Vertigo d/t Small Vessel Disease Small vessel disease of the brain is considered a distinct clinical entity and may present with a wide ranging clinical presentation; one of the most common is vertigo. Consider small vessel disease as a potential underlying cause for your patient's vertigo, especially if the MRI reveals white matter lesions or "changes." Clinical indicators: vertigo, gait or balance disturbances, white matter changes on the MRI, increased incidence of lacunar infarctions, cognitive decline, dementia, Parkinsonian type signs and symptoms. Risk factors: HTN, atherosclerosis, DM Treatment: symptomatic as there is no treatment to remove the white matter changes in the brain *It is imperative to include the diagnosis of vertigo d/t small vessel disease when clinically appropriate; including this important diagnosis in the patient's problem list, even if resolved at discharge, more accurately reflects the patient's severity of illness and risk of mortality. Please clarify and document your clinical opinion in the progress notes and discharge summary. Terms such as "probable", "suspected", "likely", "questionable", "possible", or "still to be ruled out" are acceptable. IF IN AGREEMENT, YOU MUST DOCUMENT ABOVE DIAGNOSTIC STATEMENT IN DAILY PROGRESS NOTES AND DISCHARGE SUMMARY. This document is not part of the patient's record. Thank You, Colin Chinchilla, DIETER [phone]
[2016-11-21 07:35] VITALS: BP 122/91; PULSE 63; TEMP 37; O2SAT 94
[2016-11-21] MEDS: RANITIDINE HCL 150 MG TAB PO SCH (08:35)
[2016-11-21] MEDS: HydrALAZINE 10 MG TAB PO SCH (08:35)
[2016-11-21] MEDS: METOPROLOL TARTRATE 50 MG TAB PO SCH (08:36)
[2016-11-21] MEDS: ASPIRIN 81 MG ECTAB PO SCH (08:36)
[2016-11-21] MEDS: DICYCLOMINE HCL 10 MG CAP PO SCH (08:36)
[2016-11-21] MEDS: MECLIZINE HCL 25 MG TAB PO SCH (08:36)
[2016-11-21] MEDS ORDERED: HYDROCODONE/ACETAMOPHEN 5/325MG TAB PO PRN (10:00)
--- NOTE | 2016-11-21 10:04 | Pain Management Consultation ---
Pain Management Consultation Date of Consultation Nov 21, 2016. Reason for Consultation Headaches Pain Location 1 - 2 - History Mr. Can Pace is an 86-year-old male admitted to [facility] would complain of vertigo and headaches. His pain is predominantly located in the occipital region more so on the left side and bilateral frontal areas. He reported the pain begins in the occiput region and radiates into the frontal area. Although it is difficult to clearly obtain a complete history agrees headaches as he gets confused between vertigo and headache symptoms, he can be ascertained that he is experiencing headaches for approximately last 2-3 months intermittently. He reports symptoms to occur spontaneously as well as exacerbated with movement of the cervical spine. Pain is more diffuse and not focal in the cervical spine. Pain described a sharp, shooting episodes that lasts brief periods, possibly 30 seconds. He is unsure with the symptoms are associated with his vertigo or not. He denies any visual or auditory changes associated with his headaches. Denies any trauma or falls. Denies any neurological symptoms including bowel bladder incontinence, saddle anesthesia, upper extremity weakness associated with the headaches. 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 (13) OLD MYOCARDIAL INFARCT (14) Chest pain Family History FHx: cancer FHx: heart disease Social / Work History Housing Status: lives alone Occupation: retired Allergies Coded Allergies: ROBERTA Inhibitors (Verified Adverse Reaction, Severe, HYPERKALEMIA, 11/18/16) Medications Current Inpatient Medications Medications (Trade) Dose Ordered Sig/Prachi Route Start Time Stop Time Status Last Admin Dose Admin Heparin Sodium (Porcine) (Heparin Sq 5000 Unit/0.5ml) 5,000 unit Q8 SQ 11/19/16 06:00 12/19/16 05:59 11/21/16 05:44 5,000 UNIT Sodium Chloride 1,000 ml @ 80 mls/hr [id number] IV 11/19/16 03:00 12/19/16 02:59 Future Hold 11/19/16 03:19 80 MLS/HR Acetaminophen (Tylenol Tab) 650 mg Q4H PRN PO 11/19/16 00:30 12/19/16 00:29 Al Hydrox/Mg Hydrox/Simethicone (Maalox Max Susp) 15 ml Q4H PRN PO 11/19/16 00:30 12/19/16 00:29 Magnesium Hydroxide (Milk Of Magnesia Susp) 30 ml Q12H PRN PO 11/19/16 00:30 12/19/16 00:29 Ondansetron HCl (Zofran Inj) 4 mg Q6H PRN IV 11/19/16 00:30 12/19/16 00:29 Aspirin (Ecotrin Tab) 81 mg QAM PO 11/19/16 09:00 12/19/16 08:59 11/21/16 08:36 81 MG Polyethylene (Miralax Powder Packet) 17 gm DAILY PRN PO 11/19/16 00:30 12/19/16 00:29 Clopidogrel Bisulfate (plAVix TAB) 75 mg QPM PO 11/19/16 21:00 12/19/16 20:59 11/20/16 21:06 75 MG Dicyclomine HCl (Bentyl Cap) 10 mg DAILY PO 11/19/16 09:00 12/19/16 08:59 11/21/16 08:36 10 MG Hydralazine HCl (Apresoline Tab) 10 mg BID PO 11/19/16 09:00 12/19/16 08:59 11/21/16 08:35 10 MG Isosorbide Mononitrate (Imdur Ext Rel Tab) 60 mg QPM PO 11/19/16 21:00 12/19/16 20:59 11/20/16 21:05 60 MG Metoprolol Tartrate (Lopressor Tab) 50 mg BID PO 11/19/16 09:00 12/19/16 08:59 11/21/16 08:36 50 MG Ranitidine HCl (zANTac TAB) 150 mg BID PO 11/19/16 09:00 12/19/16 08:59 11/21/16 08:35 150 MG Simvastatin (Zocor Tab) 20 mg QPM PO 11/19/16 21:00 12/19/16 20:59 11/20/16 21:07 20 MG Morphine Sulfate (MoRPHine SULFATE INJ) 2 mg Q4 PRN IV 11/19/16 00:30 12/03/16 00:29 11/20/16 14:10 2 MG Ioversol (Optiray 320) 100 ml UD PRN IV 11/19/16 01:00 11/23/16 00:59 Ioversol (Optiray 320) 100 ml UD PRN IV 11/19/16 15:00 11/23/16 14:59 Meclizine HCl (Antivert Tab) 25 mg TID PO 11/20/16 14:00 12/19/16 00:29 11/21/16 08:36 25 MG Review of Systems Denies any recent weight loss, constitutional symptoms, nausea vomiting. Has had vertigo in last 3 months. Physical Exam Height & Weight: Height 5 feet, 9.00 inches. Weight 76.200 (Kilograms) 167 (Pounds) Last Vital Signs Documentation Date Time Temp Pulse Resp B/P (MAP) Pulse Ox O2 Delivery O2 Flow Rate FiO2 11/21/16 07:35 37.0 63 18 122/91 (101) 94 Room Air Exam: Exam demonstrates Mr. North to be easily arousable but unable to maintain a trend of thought. He continues complaining of experiencing vertigo in supine and sitting position. He is oriented to time place and person. He is a poor historian and unable to recall specific events regarding his headache history. Inspection cervical spine demonstrates his loss of cervical lordosis. He has decreased range of motion in all planes more from stiffness than true pain. Provocative to the facet joints is unable to elicit any pain. No myofascial tenderness is noted. Percussion over the occipital nerves produces no distal paresthesia. Spurling maneuver is negative. He is intact and symmetrical sensation motor strength in the upper extremities. No trigger points identifiable temporalis, occipitals and the muscles of the forearm. Laboratory Laboratory Results (Last CBC): 11/21/16 05:[address]: non enhanced, reports reviewed CT Findings HEAD CT IMPRESSION: Senescent changes as above with no hemorrhage, mass effect, or evidence of acute territorial ischemia by CT criteria. No significant change from recent prior studies. Electronically signed by: Atilio Sánchez M.D. 11/20/2016 9:10 AM Dictated Date/Time: 11/20/2016 9:07 AM CERVICAL SPINE IMPRESSION: 1. Mild multilevel degenerative changes most pronounced at the C6-7 level 2. No fractures identified 3. High-grade stenosis of the right external carotid artery 4. No evidence of pathologic adenopathy 5. Multiple biapical pulmonary nodules and fibronodular opacities Electronically signed by: Uzair Castillo M.D. 11/19/2016 4:54 PM Dictated Date/Time: 11/19/2016 4:[address] ANGIOGRAPHY IMPRESSION: 1. Dominant right vertebral 2. Multifocal left vertebral stenoses which occludes the C1 level 3. No evidence of internal carotid artery stenosis 4. 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 Extensive bilateral fibronodular apical pulmonary opacities. Electronically signed by: Uzair Castillo M.D. 11/19/2016 7:22 AM Dictated Date/Time: 11/19/2016 7:15 AM Assessment 1. Chronic cervicogenic headaches. 2. Cervical spondylosis. 3. Vertigo. 4. Cerebral occlusive disease. Recommendations 1. Discontinue IV morphine. 2. Hydrocodone every 4 hours when necessary for headaches. 3. For any procedures at present time is patient's primary concern is treatment for vertigo. He would like to have his radicular address prior to any procedural treatments for his headaches. Once his vertigo has been addressed, he can be seen in [facility] for any additional therapy for his occipital headaches.
[2016-11-21 11:49] VITALS: BP 134/66; PULSE 67; TEMP 36.8; O2SAT 96
[2016-11-21 12:15] VITALS: BP 134/66; PULSE 67; TEMP 36.8; O2SAT 96
[2016-11-21] MEDS ORDERED: ANT25 PO (12:34)
--- NOTE | 2016-11-21 12:46 | Discharge Instructions ---
Discharge Instructions Date of Service Nov 21, 2016. Admission Reason for Admission: Dizziness Discharge Discharge Diagnosis / Problem: Vertigo, Headache Discharge Goals Goal(s): Diagnostic testing, Therapeutic intervention Activity Recommendations Activity Limitations: as noted below Exercise/Sports Limitations: gradually increase as tolerated Please do not drive or operate any heavy machinery. Please do not use your riding mower/tractor at least until you have been seen by the specialists. Please take frequent breaks when doing activities. Avoid rapid changes to position; allow yourself time to sit up and then slowly stand and wait before you start walking; this will allow you to maintain better balance Please make sure that there is someone with you at all times as you are at high risk for falling. It would be beneficial to continue with therapy . Instructions / Follow-Up Instructions / Follow-Up Please see on MondayNovember 28 11:05 for hospital follow up I did request an appointment with ENT physician at [facility], however they are full until January, a message was sent to their office to see if they can see you any sooner. Please follow up on this when you see Dr. Carter. Pain management clinic [phone]; I left a voicemail and they will contact Suad to schedule an appointment Current Hospital Diet Patient's current hospital diet: AHA Diet (Heart Healthy) Discharge Diet Recommended Diet: AHA Diet (Heart Healthy) Pending Studies Studies pending at discharge: no Medical Emergencies . Who to Call and When: Medical Emergencies: If at any time you feel your situation is an emergency, please call 911 immediately. . Non-Emergent Contact Non-Emergency issues call your: Primary Care Provider . . "Provider Documentation" section prepared by Debbie Ayala. . VTE Core Measure Inpt VTE Proph given/why not?: Unfractionated heparin SQ [place] Drug Monitoring Program Search Results: patient reviewed within database, no issues identified
[2016-11-21] MEDS ORDERED: HYDR-5688 PO (12:47)
--- NOTE | 2016-11-21 12:52 | Discharge Summary ---
Discharge Summary Date of Service Nov 21, 2016. Discharge Summary Admission Date: Nov 19, 2016 at 00:34 Discharge Date: Nov 21, 2016 Discharge Disposition: Home Principal Diagnosis: Headache, vertigo Pending Studies/Follow-Up: ENT referral, Pain management outpatient Medication Reconciliation New Medications: Hydrocodone/Acetaminophen 5MG/325MG ([place] 5MG/325MG) Tab 1 TAB PO Q6 PRN for Pain, #20 TAB PRN PAIN Meclizine HCl (Meclizine HCl) 25 Mg Tab 25 MG PO TID, #90 TAB Continued Medications: Acetaminophen (Tylenol) 325 Mg Tab 325 MG PO, TAB Aspirin (Aspirin Ec) 81 Mg Tab 81 MG PO DAILY B-Complex Vitamins (B Complex) 1 Cap Cap 1 CAP PO QAM Clopidogrel (Plavix) 75 Mg Tab 75 MG PO QPM, TAB Dicyclomine Hcl (Dicyclomine Hcl) 10 Mg Cap 1 CAP PO DAILY, CAP Hydralazine Hcl (Apresoline) 10 Mg Tab 10 MG PO BID, TAB Isosorbide Mononitrate Ext Rel (Imdur Ext Rel) 60 Mg Ertab 60 MG PO QPM, TAB Metoprolol Tartrate (Lopressor) (Lopressor) 50 Mg Tab 50 MG PO BID, 0 Refills Nutritional Supplements (Boost) 1 Liq Liq 1 CAN PO DAILY Ranitidine (Zantac) 150 Mg Tab 150 MG PO BID, TAB Simvastatin (Zocor) 20 Mg Tab 20 MG PO QPM, TAB Discontinued Medications: Furosemide (Lasix) 20 Mg Tab 20 MG PO once or twice week, TAB Admission Information HPI (per Admitting provider): This is an 86 year old male with a PMH of CAD s/p CABG x3, sinus node dysfunction s/p permanent pacemaker, ischemic cardiomyopathy with EF ~ 40%, HTN presents with dizziness, nausea, headache from the neck radiating to the front of the head. Patient states that he has had issues with dizziness in the past. Also states in 2013, he had been told about a possible TIA. States that the dizziness began at about 4AM on November 18 -- and has persisted since then. Denies chest pain/palpitations/shortness of breath. Was in his usual state of health prior to this beginning. Denies fevers/chills. Physical Exam (per Admitting): General Appearance: + moderate distress (secondary to pain/headache/ dizziness), + pertinent finding (elderly) Head: normocephalic, atraumatic Eyes: normal inspection ENT: hearing grossly normal Respiratory/Chest: chest non-tender, lungs clear, normal breath sounds, no respiratory distress, no accessory muscle use Cardiovascular: regular rate, rhythm, no edema Abdomen/GI: normal bowel sounds, non tender, soft Extremities/Musculoskelatal: normal capillary refill, no pedal edema Neurologic/Psych: job counselor II-XII nml as tested, no motor/sensory deficits, alert , normal mood/affect, oriented x 3 Hospital Course Headache and Vertigo: -patient presented with LUNDY, dizziness, vertigo, nausea/vomiting/ambulatory issues -Head CT negative -CTA report: Multifocal left vertebral stenoses which occludes the C1 level, No evidence of internal carotid artery stenosis, Severe stenosis of the right external carotid artery -was given meclizine and phenergan and symptoms did not improve -worsening headache as well -has hx of multiple TIA, last in 2013 -Neurology consulted, appreciate recs, CT cervical spine and a repeat CT ordered -continue PRN analgesia -meclizine 25mg TID, patient was not requesting thus changed to scheduled -PT/OT consulted, would appreciate eval for vertigo/Kathy maneuver as per Neuro recommendations, was attempted by therapy today without significant change in vertigo -check orthostatics-negative -Pain management consulted for evaluation of injections to mitigate patients headache as the patient is not a good candidate for narcotic medications given his fall risk and age; plan for outpt eval and injections pending resolution of vertigo -Outpatient ENT referral regarding vertigo CAD: -with prior CABG -stable, no current symptoms -continue aspirin, b-сергей, statin, Imdur, Plavix Sinus Node Dysfunction: -s/p pacemaker placement HTN: -continue Hydralazine DVT prophylaxis: -heparin subcutaneous PHYSICAL EXAM ON DAY OF DISCHARGE: GENERAL: Patient is in no acute distress. HEENT: No acute trauma, normocephalic, mucous membranes moist, no nasal congestion, no scleral icterus. [place] NECK: No stridor, no adenopathy, no meningismus, trachea is midline. LUNGS: Clear to auscultation bilaterally, no wheeze, no rhonchi, breath sounds equal. HEART: Without murmurs gallops or rubs, regular rate and rhythm. ABDOMEN: Soft, nontender, bowel sounds positive EXTREMITIES: No cyanosis or edema NEUROLOGIC: Oriented, no acute motor or sensory deficits, no focal weakness. SKIN: No rash, no jaundice, no diaphoresis. Total time spent on discharge = 37 This includes examination of the patient, discharge planning, medication reconciliation, and communication with other providers. Discharge Instructions see patient instructions
[2016-11-22 16:41] LABS: ALBUMIN 3.2 G/DL (3.8-4.8); GAMMA GLOBULIN 0.8 G/DL (0.8-1.7); TOTAL PROTEIN 5.9 G/DL (6.2-8.3)
== END 2016-11-21 13:07 | disposition home health service (06) | DRG 103 ==
LOC: C.EDB 19:20 → C.2E 11-19 00:34 → ENRESERV 11-19 01:00
PROVIDERS: ADMIT Family Medicine; ATTEND Internal Medicine
DX: R51 Headache (principal); I25.10 Atherosclerotic heart disease of native coronary artery without angina pectoris; R42 Dizziness and giddiness; I10 Essential (primary) hypertension; Z95.0 Presence of cardiac pacemaker; Z82.49 Family history of ischemic heart disease and other diseases of the circulatory system; Z86.73 Personal history of transient ischemic attack (TIA), and cerebral infarction without residual deficits; Z95.1 Presence of aortocoronary bypass graft; Z79.82 Long term (current) use of aspirin; Z79.02 Long term (current) use of antithrombotics/antiplatelets; I25.5 Ischemic cardiomyopathy; Z87.891 Personal history of nicotine dependence

== ENCOUNTER 2017-03-15 15:28 | Emergency (ER) | payer OTHER, MEDICARE ==
[~2017-03-15 15:28] MED LIST changes: +ANT25 PO; -FURO-85 PO; +HYDR-5688 PO; -ISOS60TA25 PO; -METO50TA16 PO
[2017-03-15 15:52] VITALS: TEMP 36.7
[2017-03-15] MEDS ORDERED: OPTIRAY 320 IV PRN (16:30)
[2017-03-15 16:48] LABS: BASO % 0.7 %; BASO ABS # 0.05 K/uL (0-0.2); COMPLETE YES; EOS % 7.4 %; HEMATOCRIT 39.5 % (42-52); IG% 0.1 %; LYMPH % 27.6 %; LYMPH ABS # 1.87 K/uL (1.2-3.4); MEAN CELL VOLUME 92.5 fL (80-100); MEAN CORPUSCULAR HEMOGLOBIN 30.2 pg (25-34); MEAN CORPUSCULAR HGB CONC 32.7 g/dl (32-36); MEAN PLATELET VOLUME 9.1 fL (7.4-10.4); MONO % 5.9 %; NEUT % 58.3 %; PLATELET COUNT 261 K/uL (130-400); RED BLOOD COUNT 4.27 M/uL (4.7-6.1); WHITE BLOOD COUNT 6.77 K/uL (4.8-10.8)
[2017-03-15 16:58] LABS: PROTHROMBIN TIME (PATIENT) 10.9 SECONDS (9.0-12.0)
[2017-03-15 17:13] LABS: BLOOD UREA NITROGEN 21 mg/dl (7-18); BUN/CREATININE RATIO 19.1 (10-20); CALCIUM 8.9 mg/dl (8.5-10.1); CARBON DIOXIDE 28 mmol/L (21-32); CHLORIDE 110 mmol/L (98-107); CREATININE 1.12 mg/dl (0.60-1.40); GLUCOSE 98 mg/dl (70-99); POTASSIUM 3.9 mmol/L (3.5-5.1); SODIUM 145 mmol/L (136-145)
[2017-03-15] MEDS ORDERED: NUTR-7 PO (17:29)
[2017-03-15] MEDS ORDERED: NTRGSL/4 UT (17:29)
[2017-03-15] MEDS ORDERED: LSX20 PO (17:29)
[2017-03-15] MEDS ORDERED: DOCU100C31 PO (17:29)
--- NOTE | 2017-03-15 17:42 | DIAGNOSTIC IMAGING REPORT ---
ABD/PELVIS IV CONTRAST ONLY CT DOSE: 597.67 mGy.cm HISTORY: Pelvic pain lower abd pain TECHNIQUE: Multiaxial CT images of the abdomen and pelvis were performed following the use of intravenous contrast. A dose lowering technique was utilized adhering to the principles of ALARA. COMPARISON STUDY: 07/23/2008 FINDINGS: Mild dependent basilar atelectasis. Several small hepatic cysts stable from the prior study. Kidneys negative for hydronephrosis. Mild fatty replacement of the pancreas. Chronic sigmoid diverticulosis. No evidence for acute diverticulitis. Nonobstructive bowel pattern. Small fat-containing left inguinal hernia. IMPRESSION: 1. Chronic sigmoid diverticulosis. 2. Otherwise negative study of the abdomen and pelvis. The above report was generated using voice recognition software. It may contain grammatical, syntax or spelling errors. Electronically signed by: Mir Miller M.D. 03/15/2017 5:40 PM Dictated Date/Time: 03/15/2017 5:37 PM
--- NOTE | 2017-03-15 17:48 | DIAGNOSTIC IMAGING REPORT ---
(CHEST FOR PE) ANGIO WITH HISTORY: 86 years-old Male presents with acute chest pain TECHNIQUE: Multiple CTA images of the chest were obtained after the intravenous administration of 95 ml Optiray 320. Coronal and sagittal MIPS were obtained from the axial data set and were submitted for review. A dose lowering technique was utilized adhering to the principles of ALARA. COMPARISON: CTA of the chest 05/14/2015. FINDINGS: CTA: Heart is moderately enlarged. Left subclavian pacer is noted with leads overlying the right atrium and right ventricle. Prior median sternotomy and CABG. Coronary arterial calcifications noted. Thoracic aorta is normal in both course and caliber without aneurysm or dissection identified. Moderate mixed plaquing is present. The pulmonary arterial tree is opacified to the level of the proximal subsegmental branches and demonstrates no focal filling defects to suggest pulmonary thromboembolic disease. CT CHEST: Heterogeneous thyroid without dominant nodule identified. Mildly enlarged subcarinal and right hilar lymph nodes are seen with right hilar lymph node measuring up to 1.6 x 1.1 cm on image 57 series 2. Large hilar lymph node measures up to 1.1 cm in short axis. These findings appear stable from 05/14/2015 with many of the nodes demonstrating areas of central calcification. No pneumothorax or pleural effusion. Mild dependent bibasilar atelectasis. Focal area of irregular consolidation with linear branching pleural-parenchymal densities is within the apical posterior segment left upper lobe, 2.0 x 3.5 cm on image 108 of series 2 which has progressed from prior study containing areas of marginal calcification. Innumerable upper lobe predominant solid pulmonary nodules are again seen in a centrilobular and minimally distributed pattern with progression from study dated 05/14/2015. Largest nodule in left upper lobe measures 8 x 6 mm on image 97 of series 2. Largest nodule on the right upper lobe is seen on image 89 series 2 measuring 9 x 7 mm. Additional pulmonary nodules seen within the superior segments of the lower lobes. Linear pleural-based subsegmental opacities of the bilateral upper lobes are also present suggesting areas of pleural-parenchymal scarring. Central airways are patent. No acute amount of the imaged upper abdomen. Soft tissues are unremarkable. Bones appear intact. Multilevel anterior endplate bridging osteophytosis of the thoracic spine. IMPRESSION: 1. Progressive innumerable upper lung zone predominant centrilobular and randomly distributed pulmonary nodules of the bilateral lungs as above with a focal area of pleural parenchymal scarring with irregular spiculation involving the apical posterior segment left upper lobe measuring up to 3.5 cm containing some irregular peripheral calcifications. These findings in addition to partially calcified mediastinal and hilar adenopathy as above suggests chronic pneumonitis, differential considerations including silicosis or other pneumoconioses, possibly with developing progressive massive fibrosis. Close follow-up with clinical history needed. 2. No acute aortic pathology or evidence of pulmonary thromboembolic disease. The above report was generated using voice recognition software. It may contain grammatical, syntax or spelling errors. Electronically signed by: Nathan Salazar M.D. 03/15/2017 5:47 PM Dictated Date/Time: 03/15/2017 5:33 PM
[2017-03-15] MEDS ORDERED: ACET-749 PO (18:26)
[2017-03-15] MEDS ORDERED: TYLENOL #3 HOME PACK PO ONE (18:30)
--- NOTE | 2017-03-15 18:35 | EMERGENCY ROOM VISIT NOTE ---
History Report prepared by Grant: Bree Mac Under the Supervision of: Dr. Juliocesar Humphrey M.D. First contact with patient: 15:56 Chief Complaint: CHEST PAIN Stated Complaint: CHEST PAIN, LT BREAST SWELLING/PAIN, CARDIAC HX History of Present Illness The patient is a 86 year old male who presents to the Emergency Room with complaints of left sided chest pain for the past 2-3 days that worsened today. The patient reports pain around his left breast. This pain is worsened with movement. He rates his pain as a 4/10 in severity. His pain is worsened with palpation. He reports that before his chest pain started he was having pain in his right upper leg which has since resolved. He does state that he has chronic swelling to his legs and takes medication for it. The patient has a significant cardiac history but states that this pain feels different than his previous heart attack. He denies any recent trauma, injury, or fall. He denies fever, cough, shortness of breath, vomiting, diarrhea, and rectal pain. He reports some lower abdominal pain, but states that he has had this symptom for over a month. Source of History: patient Onset: 2-3 days ago Position: chest (left) Symptom Intensity: 4/10 Timing: worsening Modifying Factors (Worsening): other (palpation) Associated Symptoms: + abdominal pain, No fevers, No cough, No SOB, No vomiting, No diarrhea Review of Systems See HPI for pertinent positives & negatives. A total of 10 systems reviewed and were otherwise negative. 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 Family History FHx: cancer FHx: heart disease Social History Smoking Status: Never Smoker Alcohol Use: none Housing Status: lives alone Occupation Status: retired Current/Historical Medications Scheduled Aspirin (Aspirin Ec), 81 MG PO DAILY B-Complex Vitamins (B Complex), 1 CAP PO QAM Clopidogrel (Plavix), 75 MG PO QPM Dicyclomine Hcl (Dicyclomine Hcl), 1 CAP PO DAILY Docusate Sodium (Docusate Sodium), 1 CAP PO BID Hydralazine Hcl (Apresoline), 10 MG PO BID Isosorbide Mononitrate Ext Rel (Imdur Ext Rel), 60 MG PO QPM Meclizine HCl (Meclizine HCl), 25 MG PO TID Metoprolol Tartrate (Lopressor) (Lopressor), 50 MG PO BID Nitroglycerin (Nitrostat), 0.4 MG UT PRN Nutritional Supplements (Boost), 1 CAN PO DAILY Ranitidine (Zantac), 150 MG PO BID Simvastatin (Zocor), 20 MG PO QPM Scheduled PRN Acetaminophen/Codeine (Tylenol W/Codeine #3), 1 TABS PO Q4 PRN for Pain Furosemide (Furosemide), 20 MG PO 2XWK PRN for ankle edema Hydrocodone/Acetaminophen 5MG/325MG ([place] 5MG/325MG), 1 TAB PO Q6 PRN for Pain Allergies Coded Allergies: ROBERTA Inhibitors (Verified Adverse Reaction, Severe, HYPERKALEMIA, 11/18/16) Physical Exam Vital Signs Date Time Temp Pulse Resp B/P (MAP) Pulse Ox O2 Delivery O2 Flow Rate FiO2 03/15/17 16:45 95 Room Air 03/15/17 16:39 64 03/15/17 15:52 36.7 62 20 161/77 98 Room Air Physical Exam Constitutional: Vital signs reviewed. Eyes: Pupils are equal round reactive to light. Conjunctiva are noninjected. ENT: Pharynx is clear without erythema or exudate. Mucous membranes are moist. Neck supple without meningeal signs. Respiratory: Clear to auscultation bilaterally. Breath sounds are equal bilaterally. Cardiovascular: Regular rate and rhythm. No rubs or gallops. GI: Soft, nondistended and nontender. Bowel sounds are present. Musculoskeletal: Tenderness over the left anterior chest wall, no swelling or erythema to the breast. No peripheral edema. No lower extremity tenderness. Feet are cool to touch but he does have palpable distal pulses. Integumentary: No cyanosis. Neurological: The patient is awake and alert. No focal deficits. Psychiatric: Normal affect. Medical Decision & Procedures ER Provider Diagnostic Interpretation: Radiology results as stated below per my review and the radiologist's interpretation: (CHEST FOR PE) ANGIO WITH HISTORY: 86 years-old Male presents with acute chest pain TECHNIQUE: Multiple CTA images of the chest were obtained after the intravenous administration of 95 ml Optiray 320. Coronal and sagittal MIPS were obtained from the axial data set and were submitted for review. A dose lowering technique was utilized adhering to the principles of ALARA. COMPARISON: CTA of the chest 05/14/2015. FINDINGS: CTA: Heart is moderately enlarged. Left subclavian pacer is noted with leads overlying the right atrium and right ventricle. Prior median sternotomy and CABG. Coronary arterial calcifications noted. Thoracic aorta is normal in both course and caliber without aneurysm or dissection identified. Moderate mixed plaquing is present. The pulmonary arterial tree is opacified to the level of the proximal subsegmental branches and demonstrates no focal filling defects to suggest pulmonary thromboembolic disease. CT CHEST: Heterogeneous thyroid without dominant nodule identified. Mildly enlarged subcarinal and right hilar lymph nodes are seen with right hilar lymph node measuring up to 1.6 x 1.1 cm on image 57 series 2. Large hilar lymph node measures up to 1.1 cm in short axis. These findings appear stable from 05/14/2015 with many of the nodes demonstrating areas of central calcification. No pneumothorax or pleural effusion. Mild dependent bibasilar atelectasis. Focal area of irregular consolidation with linear branching pleural-parenchymal densities is within the apical posterior segment left upper lobe, 2.0 x 3.5 cm on image 108 of series 2 which has progressed from prior study containing areas of marginal calcification. Innumerable upper lobe predominant solid pulmonary nodules are again seen in a centrilobular and minimally distributed pattern with progression from study dated 05/14/2015. Largest nodule in left upper lobe measures 8 x 6 mm on image 97 of series 2. Largest nodule on the right upper lobe is seen on image 89 series 2 measuring 9 x 7 mm. Additional pulmonary nodules seen within the superior segments of the lower lobes. Linear pleural-based subsegmental opacities of the bilateral upper lobes are also present suggesting areas of pleural-parenchymal scarring. Central airways are patent. No acute amount of the imaged upper abdomen. Soft tissues are unremarkable. Bones appear intact. Multilevel anterior endplate bridging osteophytosis of the thoracic spine. IMPRESSION: 1. Progressive innumerable upper lung zone predominant centrilobular and randomly distributed pulmonary nodules of the bilateral lungs as above with a focal area of pleural parenchymal scarring with irregular spiculation involving the apical posterior segment left upper lobe measuring up to 3.5 cm containing some irregular peripheral calcifications. These findings in addition to partially calcified mediastinal and hilar adenopathy as above suggests chronic pneumonitis, differential considerations including silicosis or other pneumoconioses, possibly with developing progressive massive fibrosis. Close follow-up with clinical history needed. 2. No acute aortic pathology or evidence of pulmonary thromboembolic disease. The above report was generated using voice recognition software. It may contain grammatical, syntax or spelling errors. Electronically signed by: Nathan Salazar M.D. 03/15/2017 5:47 PM Dictated Date/Time: 03/15/2017 5:33 PM ABD/PELVIS IV CONTRAST ONLY CT DOSE: 597.67 mGy.cm HISTORY: Pelvic pain lower abd pain TECHNIQUE: Multiaxial CT images of the abdomen and pelvis were performed following the use of intravenous contrast. A dose lowering technique was utilized adhering to the principles of ALARA. COMPARISON STUDY: 07/23/2008 FINDINGS: Mild dependent basilar atelectasis. Several small hepatic cysts stable from the prior study. Kidneys negative for hydronephrosis. Mild fatty replacement of the pancreas. Chronic sigmoid diverticulosis. No evidence for acute diverticulitis. Nonobstructive bowel pattern. Small fat-containing left inguinal hernia. IMPRESSION: 1. Chronic sigmoid diverticulosis. 2. Otherwise negative study of the abdomen and pelvis. The above report was generated using voice recognition software. It may contain grammatical, syntax or spelling errors. Electronically signed by: Mir Miller M.D. 03/15/2017 5:40 PM Dictated Date/Time: 03/15/2017 5:37 PM Laboratory Results 03/15/17 16:30 Red Blood Count 4.27, Mean Corpuscular Volume 92.5, Mean Corpuscular Hemoglobin 30.2, Mean Corpuscular Hemoglobin Concent 32.7, Mean Platelet Volume 9.1, Neutrophils (%) (Auto) 58.3, Lymphocytes (%) (Auto) 27.6, Monocytes (%) (Auto) 5.9, Eosinophils (%) (Auto) 7.4, Basophils (%) (Auto) 0.7, Neutrophils # (Auto) 3.94, Lymphocytes # (Auto) 1.87, Monocytes # (Auto) 0.40, Eosinophils # (Auto) 0.50, Basophils # (Auto) 0.05 03/15/17 16:30 Test 03/15/17 16:30 03/15/17 16:42 White Blood Count 6.77 K/uL (4.8-10.8) Red Blood Count 4.27 M/uL (4.7-6.1) Hemoglobin 12.9 g/dL (14.0-18.0) Hematocrit 39.5 % (42-52) Mean Corpuscular Volume 92.5 fL (80-100) Mean Corpuscular Hemoglobin 30.2 pg (25-34) Mean Corpuscular Hemoglobin Concent 32.7 g/dl (32-36) Platelet Count 261 K/uL (130-400) Mean Platelet Volume 9.1 fL (7.4-10.4) Neutrophils (%) (Auto) 58.3 % Lymphocytes (%) (Auto) 27.6 % Monocytes (%) (Auto) 5.9 % Eosinophils (%) (Auto) 7.4 % Basophils (%) (Auto) 0.7 % Neutrophils # (Auto) 3.94 K/uL (1.4-6.5) Lymphocytes # (Auto) 1.87 K/uL (1.2-3.4) Monocytes # (Auto) 0.40 K/uL (0.11-0.59) Eosinophils # (Auto) 0.50 K/uL (0-0.5) Basophils # (Auto) 0.05 K/uL (0-0.2) RDW Standard Deviation 48.1 fL (36.4-46.3) RDW Coefficient of Variation 14.2 % (11.5-14.5) Immature Granulocyte % (Auto) 0.1 % Immature Granulocyte # (Auto) 0.01 K/uL (0.00-0.02) Prothrombin Time 10.9 SECONDS (9.0-12.0) Prothromb Time International Ratio 1.0 (0.9-1.1) Activated Partial Thromboplast Time 25.6 SECONDS (21.0-31.0) Partial Thromboplastin Ratio 1.0 Anion Gap 7.0 mmol/L (3-11) Estimated GFR () 67.6 Estimated GFR (Non- 58.3 BUN/Creatinine Ratio 19.1 (10-20) Calcium Level 8.9 mg/dl (8.5-10.1) Bedside Troponin I < 0.030 ng/ml (0-0.045) Laboratory results as reviewed by me. ECG Indication: chest pain Rate (beats per minute): 78 Rhythm: other (atrial paced) Findings: no acute ischemic change, no ectopy ED Course 155: The patient was evaluated in room C3. A complete history and physical exam was performed. 175: I updated the patient on his results. He denies any history of lung disease. 1800: I spoke with Dr. Farris of pulmonology. He will review the radiographic studies and call me back. 181: I discussed the case with Dr. Farris. He and Dr. Hollins reviewed the patient's imaging. 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 The patient can follow up in the office as an outpatient. 182: I reassessed the patient at this time. He is feeling better and resting comfortably. I discussed the results and treatment plan with the patient. I answered all pertaining questions that he had. He expressed understanding and verbalized agreement. The patient will be discharged home. Medical Decision This is an 86-year-old male presents with left sided chest pain. Differential diagnosis includes rib contusion, rib fracture, muscle strain, infection, pneumothorax, pleurisy. I did perform a limited focused review of portions of the patient's old chart on the electronic medical record. The patient was admitted in November for vertigo. I did evaluate the patient as noted above. Patient is presenting with a 2-3 day history of left-sided chest pain. He states it's worse when he moves around or if he touches it. His daughter thought there was some swelling to that area but on my examination I do not notice any swelling. There is no erythema to suggest an infection. He also complained of her abdominal pain for about a week. IV access was established. The patient was placed on a continuous monitor and storage bin tender. I did order and personally review the patient's 12- lead EKG and chest x-ray as described above. I did order and review the patient 's blood work as noted in the electronic medical record. Troponin is negative. I did order a CT of the chest and abdomen and pelvis. I did review the images myself as well as the radiology report as described above. The patient does not have any evidence of aortic pathology or pulmonary embolism. Abdominal and pelvis CT are unremarkable. He does have some incidental findings on his CT scan. I did discuss this with Dr. farris of pulmonology. 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 The patient does state that he worked in a [employer] for many years. Dr. Farris recommended outpatient follow up for his CT findings. At this time there is no indication for hospitalization. His chest pain is very reproducible. There is no evidence of abscess or infection or fracture to his ribs. He was given a prescription for Tylenol with Codeine and advised follow closely with his doctor. He has had edema to his lower extremities and is taking a diuretic. He also has some coolness to his feet but has palpable pulses. I do suspect peripheral arterial disease and recommended he follow up with his doctor regarding this. He was discharged in good condition. Medication Reconcilliation Current Medication List: was personally reviewed by me Blood Pressure Screening Patient's blood pressure: Elevated blood pressure Blood pressure disposition: Referred to PCP Consults Time Called: 1754 Consulting Physician: Dr. Farris Returned Call: [address] Farris of pulmonology. He will review the radiographic studies and call me back. Additional Consults: Time Called: 1813 Consulted Physician: Dr. Farris Returned Call: 1813 Additional Comments: I discussed the case with Dr. Farris. He and Dr. Hollins reviewed the patient' s imaging. 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 The patient can follow up in the office as an outpatient. Impression Primary Impression: Chest wall pain Additional Impressions: Peripheral arterial disease Abnormal CT scan, chest Scribe Attestation The scribe's documentation has been prepared under my direct and personally reviewed by me in its entirety. I confirm that the note above accurately reflects all work, treatment, procedures, and medical decision making performed by me. Departure Information Dispostion Home / Self-Care Prescriptions Acetaminophen/Codeine (Tylenol W/Codeine #3) 300 Mg/30 Mg Tab 1 TABS PO Q4 Y for Pain, #14 TAB Prov: Juliocesar Humphrey M.D. 03/15/17 Referrals Aurelio Carter M.D.(NADEEN) (PCP) Forms HOME CARE DOCUMENTATION FORM, IMPORTANT VISIT INFORMATION Patient Instructions ED Chest Pain Atypical Unkn Cause, My [facility], Peripheral Artery Disease Additional Instructions You have been examined and treated today on an emergency basis only. This is not a substitute for, or an effort to provide, complete comprehensive medical care. It is impossible to recognize and treat all injuries or illnesses in a single emergency department visit. It is therefore important that you follow up closely with your physician and Dr. Farris of pulmonology. Call as soon as possible for an appointment. Return for worsening symptoms or if you develop fever, vomiting, numbness to your feet, significant discoloration to your legs, difficulty breathing or any other concerning symptoms. Problem Qualifiers
[2017-03-15 18:40] VITALS: BP 160/76; PULSE 67; O2SAT 95
[2017-03-15] MEDS ORDERED: METO50TA16 PO (19:07)
[2017-03-15] MEDS ORDERED: ISOS60TA25 PO (19:48)
[2017-03-15] MEDS ORDERED: DICY10CA12 PO (20:56)
[2017-03-15] MEDS ORDERED: ZNTT/150 PO (20:56)
[2017-03-15] MEDS ORDERED: B-CO1CAP3 PO (20:56)
== END 2017-03-15 18:40 | disposition home or self-care (01) ==
LOC: C.EDB 15:30 → C.EDC 18:40
DX: R07.89 Other chest pain (principal); I73.9 Peripheral vascular disease, unspecified; N17.9 Acute kidney failure, unspecified; I48.91 Unspecified atrial fibrillation; I25.10 Atherosclerotic heart disease of native coronary artery without angina pectoris; E11.9 Type 2 diabetes mellitus without complications; K57.90 Diverticulosis of intestine, part unspecified, without perforation or abscess without bleeding; I31.9 Disease of pericardium, unspecified; K21.9 Gastro-esophageal reflux disease without esophagitis; E78.5 Hyperlipidemia, unspecified; I10 Essential (primary) hypertension; N40.0 Benign prostatic hyperplasia without lower urinary tract symptoms; I25.2 Old myocardial infarction; Z82.49 Family history of ischemic heart disease and other diseases of the circulatory system; Z79.82 Long term (current) use of aspirin